=== PATIENT | male | born 1965 | race Caucasian/White ===

== ENCOUNTER 2019-01-17 17:47 | Inpatient (IN) | payer BC, OTHER ==
--- NOTE | 2019-01-17 19:06 | PDOC ---
History of Present Illness - General Chief Complaint: Pain, Acute Stated Complaint: BACK PAIN/NAUSEA History Source: Patient Exam Limitations: No Limitations Past History - Past Medical History Allergies/Adverse Reactions: Allergies Allergy/AdvReac Type Severity Reaction Status Date / Time No Known Allergies Allergy Verified 01/17/19 17:51 Home Medications: Ambulatory Orders Ibuprofen 800 mg PO TID #30 tablet 05/01/16 Oxycodone HCl/Acetaminophen [Percocet 5-325 mg Tablet] 1 - 2 tab PO Q6H #20 tablet MDD 4 05/01/16 COPD: No HTN: Yes Kidney Stones: Yes - Immunization History Immunization Up to Date: Yes - Suicide/Smoking/Psychosocial Hx Smoking History: Never smoked Have you smoked in the past 12 months: No Number of Cigarettes Smoked Daily: 0 Cigars Per Day: 0 Hx Alcohol Use: No Drug/Substance Use Hx: No *Physical Exam - Vital Signs Last Vital Signs Temp Pulse Resp BP Pulse Ox 98.8 F 86 18 157/99 98 01/17/19 17:49 01/17/19 17:49 01/17/19 17:49 01/17/19 17:49 01/17/19 17:49
[2019-01-17] MEDS ORDERED: KETOROLAC TROMETHAMINE 30 MG/1 ML VIAL IVPUSH ONE (20:04)
[2019-01-17] MEDS ORDERED: ONDANSETRON 4 MG/2 ML VIAL IVPUSH ONE (20:04)
[2019-01-17] MEDS ORDERED: SODIUM CHLORIDE 1,000 ML IV STA (20:04)
[2019-01-17] MEDS ORDERED: morphine CARPU-JECT 2 MG/1 ML DISP.SYRIN IVPUSH ONE (20:04)
--- NOTE | 2019-01-17 20:04 | PDOC ---
History of Present Illness - General History Source: Patient Exam Limitations: No Limitations - History of Present Illness Initial Comments: 01/17/19 19:52 Patient is a 53 year male with h/o HTN, kidney stones with lithotripsy 2 year ago, c/o of flank pain since this morning. States the pain is sharp, intermittent this morning but constant for the 2 hours now 9/10, associated with serial, no vomiting, no hematuria. Denies fever, chills. PMD: Elizabet PMHX: as above PSOCHX: neg etoh, drug, cig ALL: NKDA GENERAL/CONSTITUTIONAL: [No fever or chills. No weakness. No weight change.] HEAD, EYES, EARS, NOSE AND THROAT: [No change in vision. No ear pain or discharge. No sore throat.] CARDIOVASCULAR: [No chest pain or shortness of breath.] RESPIRATORY: [No cough, wheezing, or hemoptysis.] GASTROINTESTINAL: [No nausea, vomiting, diarrhea or constipation. No rectal bleeding.] GENITOURINARY: [No dysuria, frequency, or change in urination.] MUSCULOSKELETAL: [No joint or muscle swelling or pain. No neck or back pain.] SKIN AND BREASTS: [No rash or easy bruising.] NEUROLOGIC: [No headache, vertigo, loss of consciousness, or loss of sensation.] PSYCHIATRIC: [No depression or anxiety.] ENDOCRINE: [No increased thirst. No abnormal weight change.] HEMATOLOGIC/LYMPHATIC: [No anemia, easy bleeding, or history of blood clots.] ALLERGIC/IMMUNOLOGIC: [No hives or skin allergy. No latex allergy.] GENERAL: [The patient is awake, alert, and fully oriented, in no acute distress. ] HEAD: [Normal with no signs of trauma.] EYES: [Pupils equal, round and reactive to light, extraocular movements intact, sclera anicteric, conjunctiva clear.] ENT: [Ears normal, nares patent, oropharynx clear without exudates. Moist mucous membranes.] NECK: [Normal range of motion, supple without lymphadenopathy, JVD, or masses.] LUNGS: [Breath sounds equal, clear to auscultation bilaterally. No wheezes, and no crackles.] HEART: [Regular rate and rhythm, normal S1 and S2 without murmur, rub.] ABDOMEN: [Soft, nontender, normoactive bowel sounds. No guarding, no rebound. No masses.] EXTREMITIES: [Normal range of motion, no edema. No clubbing or cyanosis. No cords, erythema, or tenderness.] NEUROLOGICAL: [Cranial nerves II through XII grossly intact. Normal speech, normal gait.] PSYCH: [Normal mood, normal affect.] SKIN: [Warm, Dry, normal turgor, no rashes or lesions noted.] <Jose Haines - Last Filed: 01/17/19 20:07> <Nury Herrera - Last Filed: 01/17/19 23:35> - General Chief Complaint: Pain, Acute Stated Complaint: BACK PAIN/NAUSEA Past History - Past Medical History COPD: No HTN: Yes Kidney Stones: Yes - Immunization History Immunization Up to Date: Yes - Suicide/Smoking/Psychosocial Hx Smoking History: Never smoked Have you smoked in the past 12 months: No Number of Cigarettes Smoked Daily: 0 Cigars Per Day: 0 Hx Alcohol Use: No Drug/Substance Use Hx: No <Jose Haines - Last Filed: 01/17/19 20:07> <Nury Herrera - Last Filed: 01/17/19 23:35> - Past Medical History Allergies/Adverse Reactions: Allergies Allergy/AdvReac Type Severity Reaction Status Date / Time No Known Allergies Allergy Verified 01/17/19 17:51 Home Medications: Ambulatory Orders Ibuprofen 800 mg PO TID #30 tablet 05/01/16 Oxycodone HCl/Acetaminophen [Percocet 5-325 mg Tablet] 1 - 2 tab PO Q6H #20 tablet MDD 4 05/01/16 *Physical Exam - Vital Signs Last Vital Signs Temp Pulse Resp BP Pulse Ox 98.8 F 86 18 157/99 98 01/17/19 17:49 01/17/19 17:49 01/17/19 17:49 01/17/19 17:49 01/17/19 17:49 <Jose Haines - Last Filed: 01/17/19 20:07> - Vital Signs Last Vital Signs Temp Pulse Resp BP Pulse Ox 98.8 F 86 18 157/99 98 01/17/19 17:49 01/17/19 17:49 01/17/19 17:49 01/17/19 17:49 01/17/19 17:49 <Nury Herrera - Last Filed: 01/17/19 23:35> ED Treatment Course - LABORATORY CBC & Chemistry Diagram: 01/17/19 20:06 01/17/19 21:56 - ADDITIONAL ORDERS Additional order review: Laboratory Results 01/17/19 01/17/19 01/17/19 21:56 21:35 20:06 Sodium 136 Cancelled Potassium 4.1 Cancelled Chloride 104 Cancelled Carbon Dioxide 27 Cancelled Anion Gap 6 L Cancelled BUN 30 H Cancelled Creatinine 2.0 H Cancelled Creat Clearance w eGFR 35.13 Cancelled Random Glucose 106 Cancelled Calcium 9.2 Cancelled Total Bilirubin Cancelled AST Cancelled ALT Cancelled Alkaline Phosphatase Cancelled Total Protein Cancelled Albumin Cancelled Urine Color Yellow Urine Appearance Clear Urine pH 5.0 Ur Specific [place] 1.015 Urine Protein Negative Urine Glucose (UA) Negative Urine Ketones Negative Urine Blood 1+ H Urine Nitrite Negative Urine Bilirubin Negative Urine Urobilinogen 0.2 Ur Leukocyte Esterase 1+ H Urine WBC (Auto) 17 Urine RBC (Auto) 15 Urine Casts (Auto) 3 U Epithel Cells (Auto) 0.9 Urine Bacteria (Auto) 2.5 01/17/19 20:06 RBC 5.46 MCV 89.5 MCHC 33.9 RDW 15.0 D MPV 9.6 Neutrophils % 85.9 H Lymphocytes % 7.5 L D Monocytes % 5.8 Eosinophils % 0.5 Basophils % 0.3 - Medications Given in the ED: ED Medications Discontinued Medications Generic Name Dose Route Start Last Admin Trade Name Freq PRN Reason Stop Dose Admin Sodium Chloride 1,000 mls @ 1,000 mls/hr 01/17/19 20:04 01/17/19 22:41 Normal Saline - IV 01/17/19 21:03 1,000 mls/hr ASDIR STA Administration Ceftriaxone Sodium 1,000 mg/ 50 mls @ 100 mls/hr 01/17/19 22:15 01/17/19 22: 40 Dextrose IVPB 01/17/19 22:44 100 mls/hr ONCE ONE Administration Ketorolac Tromethamine 30 mg 01/17/19 20:04 01/17/19 21:50 Toradol Injection - IVPUSH 01/17/19 20:05 30 mg ONCE ONE Administration Morphine Sulfate 2 mg 01/17/19 20:04 01/17/19 21:50 Morphine Injection - IVPUSH 01/17/19 20:05 2 mg ONCE ONE Administration Ondansetron HCl 4 mg 01/17/19 20:04 01/17/19 21:50 Zofran Injection IVPUSH 01/17/19 20:05 4 mg ONCE ONE Administration <Nury Herrera - Last Filed: 01/17/19 23:35> Medical Decision Making - Medical Decision Making 01/17/19 23:33 Patient Name: GAYLA JUAREZ THIS IS A PRELIMINARY REPORT FROM [facility] DATE OF SERVICE: 2019-01-17 20:59:10 IMAGES: 465 EXAM: ABDOMEN \T\ PELVIS CT W/O CONTR HISTORY: Right flank pain COMPARISON: None provided FINDINGS: There is mild dependent atelectasis at the lung bases Noncalcified nodule in the left lower lobe measuring 4.5 mm, series 3 image 3 The liver, gallbladder, spleen, pancreas and adrenal glands are without gross abnormality allowing for lack of intravenous contrast There is a stone in the mid right ureter measuring 6 mm. Associated moderate to severe right hydronephrosis and perinephric stranding There is a stone in the proximal left ureter measuring 9 mm without hydronephrosis. Multiple bilateral nonobstructing renal stones A few cortical hypodensities in both kidneys are likely cysts There is no bowel distention The appendix is normal Multiple prostatic calcifications. The prostate is not enlarged Bilateral inguinal hernias containing fat No intra-abdominal free air or free fluid <Nury Herrera - Last Filed: 01/17/19 23:35> *DC/Admit/Observation/Transfer <Jose Haines - Last Filed: 01/17/19 20:07> - Discharge Dispostion Decision to Admit order: Yes <Nury Herrera - Last Filed: 01/17/19 23:35> Diagnosis at time of Disposition: Hydronephrosis, right, Kidney calculi, Ureteral calculus, right, Pyelonephritis - Discharge Dispostion Condition at time of disposition: Guarded
[2019-01-17 20:19] LABS: BASO % 0.3 % (0-2.0); EOS % 0.5 % (0-4.5); HEMATOCRIT 48.9 % (35.4-49); HEMOGLOBIN 16.6 GM/dL (11.7-16.9); LYMPH % 7.5 % (8-40); MCH 30.4 pg (25.7-33.7); MCHC 33.9 g/dl (32.0-35.9); MEAN CELL VOLUME 89.5 fl (80-96); MEAN PLT VOLUME 9.6 fl (7.5-11.1); MONO % 5.8 % (3.8-10.2); NEUT % 85.9 % (42.8-82.8); PLATELET COUNT 207 K/MM3 (134-434); RBC 5.46 M/mm3 (4.00-5.60); WHITE BLOOD COUNT 12.3 K/mm3 (4.0-10.0)
[2019-01-17] MEDS ORDERED: morphine SULFATE 4 MG/ML VIAL ONE (20:49)
[2019-01-17] MEDS ORDERED: ONDANSETRON 4 MG/2 ML VIAL ONE ×2 (20:50)
[2019-01-17] MEDS ORDERED: KETOROLAC TROMETHAMINE 30 MG/1 ML VIAL ONE (20:50)
[2019-01-17 21:53] LABS: EPI CELLS 0.9 /HPF (0-5/HPF); URINE APPEARANCE CLEAR; URINE BACTERIA 2.5 /hpf (NEGATIVE); URINE BILIRUBIN NEGATIVE (NEGATIVE); URINE CASTS 3 /lpf (0-8); URINE COLOR YELLOW; URINE GLUCOSE (UA) NEGATIVE (NEGATIVE); URINE KETONE NEGATIVE (NEGATIVE); URINE LEUK ESTERASE 1+ (NEGATIVE); URINE NITRITE NEGATIVE (NEGATIVE); URINE PROTEIN NEGATIVE (NEGATIVE); URINE RBC 15 /hpf (0-4); URINE UROBILINOGEN 0.2 mg/dL (0.2-1.0); URINE WBC 17 /hpf (0-5)
[2019-01-17] MEDS ORDERED: CEFTRIAXONE 1,000 MG in DEXTROSE 5%-WATER - 50 ML IVPB ONE (22:15)
[2019-01-17 22:26] LABS: ANION GAP 6 MMOL/L (8-16); BLOOD UREA NITROGEN 30 mg/dL (7-18); CALCIUM 9.2 mg/dL (8.5-10.1); CHLORIDE 104 mmol/L (98-107); CO2 27 mmol/L (21-32); GLUCOSE,RANDOM 106 mg/dL (74-106); POTASSIUM 4.1 mmol/L (3.5-5.1); SODIUM 136 mmol/L (136-145)
[2019-01-17] MEDS ORDERED: CEFTRIAXONE 1 GM/50 ML BAG ONE (22:35)
--- NOTE | 2019-01-18 00:24 | HP ---
CHIEF COMPLAINT: Right flank pain PCP: None HISTORY OF PRESENT ILLNESS: Pt is a 53 y/o M with a significant past medical history of nephrolithiasis, HTN , and Depression who presented to [facility] [place] 2[place] due to right flank pain. Pain commenced yesterday morning (01/18/19) suddenly. Pain is sharp, constant and nonradiating. Pt endorses an episode of vomiting in addition to nausea and decreased appetite. Pt denies any blood in his urine or painful urination. Also denies fever, chills, or rigors. Endorses he has had these symptoms in the past which were attributed to kidney stones. PMH as above Social Hx- Denies Tobacco/Alcohol/Illicit drug use SurgHx- R ESWL FH- Father HTN, Mother HLF NKDA ER course was notable for: (1) CTAP--> R ureteral stone 6 mm (2) WBC 12.3 (3) Ceftriaxone 1 gm given in ED HOME MEDICATIONS: Home Medications Medication Instructions Recorded Ibuprofen 800 mg PO TID #30 tablet 05/01/16 Oxycodone HCl/Acetaminophen 1 - 2 tab PO Q6H #20 tablet MDD 4 05/01/16 [Percocet 5-325 mg Tablet] REVIEW OF SYSTEMS CONSTITUTIONAL: Absent: fever, chills, diaphoresis, generalized weakness, malaise, loss of appetite, weight change HEENT: Absent: rhinorrhea, nasal congestion, throat pain, throat swelling, difficulty swallowing, mouth swelling, ear pain, eye pain, visual changes CARDIOVASCULAR: Absent: chest pain, syncope, palpitations, irregular heart rate, lightheadedness , peripheral edema RESPIRATORY: Absent: cough, shortness of breath, dyspnea with exertion, orthopnea, wheezing, stridor, hemoptysis GASTROINTESTINAL: Absent: abdominal pain, abdominal distension, nausea, vomiting, diarrhea, constipation, melena, hematochezia GENITOURINARY: present: flank pain MUSCULOSKELETAL: Absent: myalgia, arthralgia, joint swelling, back pain, neck pain SKIN: Absent: rash, itching, pallor HEMATOLOGIC/IMMUNOLOGIC: Absent: easy bleeding, easy bruising, lymphadenopathy, frequent infections ENDOCRINE: Absent: unexplained weight gain, unexplained weight loss, heat intolerance, cold intolerance NEUROLOGIC: Absent: headache, focal weakness or paresthesias, dizziness, unsteady gait, seizure, mental status changes, bladder or bowel incontinence PSYCHIATRIC: Absent: anxiety, depression, suicidal or homicidal ideation, hallucinations. PHYSICAL EXAMINATION Vital Signs - 24 hr 01/17/19 17:49 Temperature 98.8 F Pulse Rate 86 Respiratory 18 Rate Blood Pressure 157/99 O2 Sat by Pulse 98 Oximetry (%) GENERAL: NAD HEAD: Normal with no signs of trauma. EYES: eomi sclera clear. EARS, NOSE, THROAT: mmm NECK: supple LUNGS: ctab HEART: RRR nl S1S2 ABDOMEN: Soft, nontender, not distended, RIGHT CVA tenderness ma. LOWER EXTREMITIES: no cce NEUROLOGICAL: Cranial nerves II-XII intact. Normal speech. Normal gait. PSYCHIATRIC: Cooperative. Good eye contact. Appropriate mood and affect. SKIN: Warm, dry, normal turgor, no rashes or lesions noted, normal capillary refill. Laboratory Results - last 24 hr 01/17/19 01/17/19 01/17/19 20:06 20:06 21:35 WBC 12.3 H RBC 5.46 Hgb 16.6 Hct 48.9 MCV 89.5 MCH 30.4 MCHC 33.9 RDW 15.0 D Plt Count 207 MPV 9.6 Absolute Neuts (auto) 10.6 H Neutrophils % 85.9 H Lymphocytes % 7.5 L D Monocytes % 5.8 Eosinophils % 0.5 Basophils % 0.3 Nucleated RBC % 0 Sodium Cancelled Potassium Cancelled Chloride Cancelled Carbon Dioxide Cancelled Anion Gap Cancelled BUN Cancelled Creatinine Cancelled Creat Clearance w eGFR Cancelled Random Glucose Cancelled Calcium Cancelled Total Bilirubin Cancelled AST Cancelled ALT Cancelled Alkaline Phosphatase Cancelled Total Protein Cancelled Albumin Cancelled Urine Color Yellow Urine Appearance Clear Urine pH 5.0 Ur Specific [place] 1.015 Urine Protein Negative Urine Glucose (UA) Negative Urine Ketones Negative Urine Blood 1+ H Urine Nitrite Negative Urine Bilirubin Negative Urine Urobilinogen 0.2 Ur Leukocyte Esterase 1+ H Urine WBC (Auto) 17 Urine RBC (Auto) 15 Urine Casts (Auto) 3 U Epithel Cells (Auto) 0.9 Urine Bacteria (Auto) 2.5 01/17/19 21:56 WBC RBC Hgb Hct MCV MCH MCHC RDW Plt Count MPV Absolute Neuts (auto) Neutrophils % Lymphocytes % Monocytes % Eosinophils % Basophils % Nucleated RBC % Sodium 136 Potassium 4.1 Chloride 104 Carbon Dioxide 27 Anion Gap 6 L BUN 30 H Creatinine 2.0 H Creat Clearance w eGFR 35.13 Random Glucose 106 Calcium 9.2 Total Bilirubin AST ALT Alkaline Phosphatase Total Protein Albumin Urine Color Urine Appearance Urine pH Ur Specific [place] Urine Protein Urine Glucose (UA) Urine Ketones Urine Blood Urine Nitrite Urine Bilirubin Urine Urobilinogen Ur Leukocyte Esterase Urine WBC (Auto) Urine RBC (Auto) Urine Casts (Auto) U Epithel Cells (Auto) Urine Bacteria (Auto) ASSESSMENT/PLAN: Pt is a 53 y/o gentleman with a significant past medical history of nephrolithiasis, HTN, and Depression who presented to [facility] [place] 2[place] due to right flank pain. # Right Hydronephrosis 2/2 R ureteral calculus -CTAP---> 6 mm mid R ureteral stone w/ associated R Hydronephrosis and perinephric stranding -Urology Consult -continue with Ceftriaxone 1 g daily. -Strain Urine -Morphine 2 mg Q6H PRN - NPO in light of possible ureteroscopy laser Lithotripsy in am or ESWL. Usually ESWl for stones less than 10 cm. -Flomax 0.4 daily to aid in stone passage # BHARGAVI vs CKD -Last admission 2015, pt also had Cr of 2.0. Will hydrate and repeat BMP in am. -Day team to consider Urine Studies and Renal Consult. Will hold Losartan 50 Daily # HTN Hold Losartan in light of elevated Cr. Day team to reconcile medication dosages in am. Pharmacy closed #Depression Resume Tofranil. Day team to reconcile medication dosages in am. Pharmacy closed. Pt states he is on 50 BID. #FEN LR@75 Monitor Electrolytes NPO #DVT ppx: SCDs #Dispo: Med-Surg Visit type - Emergency Visit Emergency Visit: Yes ED Registration Date: 01/17/19 Care time: The patient presented to the Emergency Department on the above date and was hospitalized for further evaluation of their emergent condition. - New Patient This patient is new to me today: Yes Date on this admission: 01/18/19 - Critical Care Critical Care patient: No
[2019-01-18] MEDS ORDERED: morphine SULFATE 4 MG/ML VIAL IVPUSH PRN (00:58)
[2019-01-18] MEDS ORDERED: LACTATED RINGERS SOLUTION 1,000 ML/1,000 ML INFUS.BAG IV SCH (01:00)
[2019-01-18] MEDS: TAMSULOSIN HCL 0.4 MG CAP PO SCH ×2 (02:29→08:33)
[2019-01-18] MEDS ORDERED: HEPARIN NA (PORCINE) 5,000 UNITS/ML 1ML VIAL SQ SCH (06:00)
--- NOTE | 2019-01-18 06:14 | PN ---
Teaching Attending Note Name of Resident: Serge Almonte ATTENDING PHYSICIAN STATEMENT I saw and evaluated the patient. I reviewed the resident's note and discussed the case with the resident. I agree with the resident's findings and plan as documented. SUBJECTIVE: OBJECTIVE: s1 and s2 rrr lungs cta CVA tenderness PERRLA good mood ASSESSMENT AND PLAN: Pt is a 53 y/o male with a hx of nephrolithiasis, HTN, and MDD presented to the hospital for right flank pain. Right Hydronephrosis 2/2 R ureteral calculus -CTAP---> 6 mm mid R ureteral stone w/ associated R Hydronephrosis and perinephric stranding -Urology Consult -continue with Ceftriaxone 1 g daily. pain management with Morphine 2 mg Q6H PRN - NPO in light of possible ureteroscopy laser Lithotripsy in am or ESWL. Usually ESWl for stones less than 10 cm. -tamsulosin 0.4 daily to aid in stone passage - analysis of the stone to prevent recoccrence is warrented # BHARGAVI vs CKD - IVVF hydration - renal evaluation - HTN: - c/w medication #Depression c/w home medication patient is not homicidal or suicidal Problem List - Problems (1) Acute kidney injury superimposed on CKD Code(s): N17.9 - ACUTE KIDNEY FAILURE, UNSPECIFIED; N18.9 - CHRONIC KIDNEY DISEASE, UNSPECIFIED (2) HTN (hypertension), benign Code(s): I10 - ESSENTIAL (PRIMARY) HYPERTENSION (3) MDD (major depressive disorder), recurrent episode, mild Code(s): F33.0 - MAJOR DEPRESSIVE DISORDER, RECURRENT, MILD (4) Hydronephrosis, right Code(s): N13.30 - UNSPECIFIED HYDRONEPHROSIS
[2019-01-18] MEDS: IMIPRAMINE HCL 25 MG TABLET (NON FORMULARY) PO SCH ×2 (07:14→22:14)
[2019-01-18 07:56] LABS: BASO % 0.4 % (0-2.0); EOS % 1.7 % (0-4.5); HEMATOCRIT 46.2 % (35.4-49); LYMPH % 17.1 % (8-40); MCH 31.5 pg (25.7-33.7); MCHC 34.6 g/dl (32.0-35.9); MEAN CELL VOLUME 90.9 fl (80-96); MEAN PLT VOLUME 9.2 fl (7.5-11.1); MONO % 7.3 % (3.8-10.2); NEUT % 73.5 % (42.8-82.8); PLATELET COUNT 174 K/MM3 (134-434); RBC 5.09 M/mm3 (4.00-5.60); RDW 13.1 % (11.9-15.9)
[2019-01-18 08:35] LABS: ALBUMIN 3.3 g/dl (3.4-5.0); ALK PHOS 65 U/L (45-117); ANION GAP 6 MMOL/L (8-16); BILIRUBIN,TOTAL 0.6 mg/dL (0.2-1); BLOOD UREA NITROGEN 23 mg/dL (7-18); CALCIUM 8.3 mg/dL (8.5-10.1); CHLORIDE 108 mmol/L (98-107); CO2 27 mmol/L (21-32); CREATININE 1.7 mg/dL (0.55-1.3); GLUCOSE,RANDOM 96 mg/dL (74-106); MAGNESIUM 2.2 mg/dL (1.8-2.4); PHOSPHOROUS 2.6 mg/dL (2.5-4.9); POTASSIUM 4.3 mmol/L (3.5-5.1); SGOT/AST 19 U/L (15-37); SGPT/ALT 30 U/L (13-61); SODIUM 141 mmol/L (136-145); TOT PROT 6.1 g/dl (6.4-8.2)
[2019-01-18 08:45] LABS: INR 1.02 (0.83-1.09)
--- NOTE | 2019-01-18 13:07 | PN ---
Physical Exam: SUBJECTIVE: Patient seen and examined at bedside. PAIN is better controlled with IV morphine so far. OBJECTIVE: Vital Signs Period Temp Pulse Resp BP Sys/Culver Pulse Ox Last 24 Hr 98.2 F-98.8 F 84-86 18-18 123-157/66-99 97-98 GENERAL: The patient is awake, alert, and fully oriented, in no acute distress. HEAD: Normal with no signs of trauma. EYES: PERRL, extraocular movements intact, sclera anicteric, conjunctiva clear. No ptosis. ENT: Ears normal, nares patent, oropharynx clear without exudates, moist mucous membranes. NECK: Trachea midline, full range of motion, supple. LUNGS: Breath sounds equal, clear to auscultation bilaterally, no wheezes, no crackles, no accessory muscle use. HEART: Regular rate and rhythm, S1, S2 without murmur, rub or gallop. ABDOMEN: Soft, decreased right flank tenderness.. EXTREMITIES: 2+ pulses, warm, well-perfused, no edema. NEUROLOGICAL: Cranial nerves II through XII grossly intact. Normal speech, gait not observed. PSYCH: Normal mood, normal affect. SKIN: Warm, dry, normal turgor, no rashes or lesions noted Laboratory Results - last 24 hr 01/17/19 01/17/19 01/17/19 20:06 20:06 21:35 WBC 12.3 H RBC 5.46 Hgb 16.6 Hct 48.9 MCV 89.5 MCH 30.4 MCHC 33.9 RDW 15.0 D Plt Count 207 MPV 9.6 Absolute Neuts (auto) 10.6 H Neutrophils % 85.9 H Lymphocytes % 7.5 L D Monocytes % 5.8 Eosinophils % 0.5 Basophils % 0.3 Nucleated RBC % 0 PT with INR INR PTT (Actin FS) Sodium Cancelled Potassium Cancelled Chloride Cancelled Carbon Dioxide Cancelled Anion Gap Cancelled BUN Cancelled Creatinine Cancelled Creat Clearance w eGFR Cancelled Random Glucose Cancelled Calcium Cancelled Phosphorus Magnesium Total Bilirubin Cancelled AST Cancelled ALT Cancelled Alkaline Phosphatase Cancelled Total Protein Cancelled Albumin Cancelled Urine Color Yellow Urine Appearance Clear Urine pH 5.0 Ur Specific [place] 1.015 Urine Protein Negative Urine Glucose (UA) Negative Urine Ketones Negative Urine Blood 1+ H Urine Nitrite Negative Urine Bilirubin Negative Urine Urobilinogen 0.2 Ur Leukocyte Esterase 1+ H Urine WBC (Auto) 17 Urine RBC (Auto) 15 Urine Casts (Auto) 3 U Epithel Cells (Auto) 0.9 Urine Bacteria (Auto) 2.5 Blood Type Antibody Screen 01/17/19 01/18/19 01/18/19 21:56 05:20 07:40 WBC 9.0 RBC 5.09 Hgb 16.0 Hct 46.2 MCV 90.9 MCH 31.5 MCHC 34.6 RDW 13.1 D Plt Count 174 MPV 9.2 Absolute Neuts (auto) 6.6 Neutrophils % 73.5 Lymphocytes % 17.1 D Monocytes % 7.3 Eosinophils % 1.7 D Basophils % 0.4 Nucleated RBC % 0 PT with INR INR PTT (Actin FS) Sodium 136 Potassium 4.1 Chloride 104 Carbon Dioxide 27 Anion Gap 6 L BUN 30 H Creatinine 2.0 H Creat Clearance w eGFR 35.13 Random Glucose 106 Calcium 9.2 Phosphorus Magnesium Total Bilirubin AST ALT Alkaline Phosphatase Total Protein Albumin Urine Color Urine Appearance Urine pH Ur Specific [place] Urine Protein Urine Glucose (UA) Urine Ketones Urine Blood Urine Nitrite Urine Bilirubin Urine Urobilinogen Ur Leukocyte Esterase Urine WBC (Auto) Urine RBC (Auto) Urine Casts (Auto) U Epithel Cells (Auto) Urine Bacteria (Auto) Blood Type AB POSITIVE Antibody Screen Negative 01/18/19 01/18/19 01/18/19 07:40 07:40 09:00 WBC RBC Hgb Hct MCV MCH MCHC RDW Plt Count MPV Absolute Neuts (auto) Neutrophils % Lymphocytes % Monocytes % Eosinophils % Basophils % Nucleated RBC % PT with INR 12.00 INR 1.02 PTT (Actin FS) 31.0 Sodium 141 Potassium 4.3 Chloride 108 H Carbon Dioxide 27 Anion Gap 6 L BUN 23 H Creatinine 1.7 H Creat Clearance w eGFR 42.37 Random Glucose 96 Calcium 8.3 L Phosphorus 2.6 Magnesium 2.2 Total Bilirubin 0.6 AST 19 ALT 30 Alkaline Phosphatase 65 Total Protein 6.1 L Albumin 3.3 L Urine Color Urine Appearance Urine pH Ur Specific [place] Urine Protein Urine Glucose (UA) Urine Ketones Urine Blood Urine Nitrite Urine Bilirubin Urine Urobilinogen Ur Leukocyte Esterase Urine WBC (Auto) Urine RBC (Auto) Urine Casts (Auto) U Epithel Cells (Auto) Urine Bacteria (Auto) Blood Type AB POSITIVE Antibody Screen Active Medications Generic Name Dose Route Start Last Admin Trade Name Bre PRN Reason Stop Dose Admin Lactated Ringer's 1,000 ml in 1,000 mls @ 75 mls/hr 01/18/19 01:00 01/18/19 02:27 Lactated Ringers Solution IV 75 mls/hr ASDIR BHARAT Administration Ceftriaxone Sodium 1 gm/ 50 mls @ 100 mls/hr 01/18/19 22:00 Dextrose IVPB 01/18/19 22:29 ONCE ONE Imipramine HCl 50 mg 01/18/19 06:00 01/18/19 07:14 Tofranil - PO 50 mg BID BHARAT Administration Morphine Sulfate 2 mg 01/18/19 00:58 Morphine Sulfate IVPUSH Q6H PRN PAIN LEVEL 6-10 Tamsulosin HCl 0.4 mg 01/18/19 01:51 01/18/19 08:33 Flomax - PO Not Given DAILY@0830 [facility]ESS [facility] ASSESSMENT/PLAN: Pt is a 53 y/o gentleman with a significant past medical history of nephrolithiasis, HTN, and Depression who presented to [facility] due to right flank pain. # Right Hydronephrosis 2/2 R ureteral calculus possibly complicated by UTI -CTAP---> 6 mm mid R ureteral stone w/ associated R Hydronephrosis and perinephric stranding - Pending Urology eval. -continue with Ceftriaxone 1 g daily for now.>>F/U with urine cx -Strain Urine - control pain, can switch IV morphine to percocet. -Flomax 0.4 daily to aid in stone passage # BHARGAVI ON ?? CKD -Last admission 2015, pt also had Cr of 2.0 >>>1.7 today. -Will hold Losartan for now. # HTN Hold Losartan in light of elevated Cr. #Depression Resume Tofranil. Need to reconcile medication dosages . Pt states he is on 50 BID. #FEN LR@75 Monitor Electrolytes #DVT ppx: SCDs #Dispo: Med-Surg Plan d/w the patient at bedside. Visit type - Emergency Visit Emergency Visit: Yes ED Registration Date: 01/17/19 Care time: The patient presented to the Emergency Department on the above date and was hospitalized for further evaluation of their emergent condition. - New Patient This patient is new to me today: Yes Date on this admission: 01/18/19 - Critical Care Critical Care patient: No - Discharge Referral Referred to [facility] No
[2019-01-18] MEDS ORDERED: morphine SULFATE 4 MG/ML VIAL ONE (15:09)
[2019-01-18] MEDS ORDERED: ACETAMINOPHEN 325 MG TABLET (FP) PO PRN (15:27)
[2019-01-18] MEDS ORDERED: oxyCODONE HCL 5 MG TABLET PO PRN (15:27)
[2019-01-18 16:55] VITALS: BMI 26.5
[2019-01-18] MEDS ORDERED: PT OWN MED DRAWER 7, Y5N ONE ×2 (16:59→20:04)
--- NOTE | 2019-01-18 17:20 | PN ---
Physical Exam: SUBJECTIVE: Patient seen and examined at bedside this morning. Patient admitted last night due to right flank pain for 1 day. Patient reported improvement of pain this morning with morphine. He denies fever, chills, headache, dizziness, chest pain, SOB, abdominal pain, diarrhea. He denies dysuria, hematuria. OBJECTIVE: Vital Signs Temperature 97.9 F 01/18/19 16:45 Pulse Rate 80 01/18/19 16:45 Respiratory Rate 20 01/18/19 16:45 Blood Pressure 149/90 01/18/19 16:45 O2 Sat by Pulse Oximetry (%) 100 01/18/19 16:45 GENERAL: The patient is awake, alert, and fully oriented, in no acute distress. HEAD: Normal with no signs of trauma. EYES:PERRLA, EOMI, sclera anicteric, conjunctiva clear. ENT:oropharynx clear without exudates, moist mucous membranes. NECK: Trachea midline, full range of motion, supple. LUNGS: Breath sounds equal, clear to auscultation bilaterally HEART: Regular rate and rhythm, S1, S2 without murmur, rub or gallop. ABDOMEN: Soft, nontender, nondistended, normoactive bowel sounds. +R flank tenderness EXTREMITIES: 2+ pulses, warm, well-perfused, no edema. NEUROLOGICAL: Cranial nerves II through XII grossly intact. Normal speech, normal gait. PSYCH: Normal mood, normal affect. SKIN: Warm, dry, normal turgor, no rashes or lesions noted Laboratory Results - last 24 hr 01/17/19 01/17/19 01/17/19 20:06 20:06 21:35 WBC 12.3 H RBC 5.46 Hgb 16.6 Hct 48.9 MCV 89.5 MCH 30.4 MCHC 33.9 RDW 15.0 D Plt Count 207 MPV 9.6 Absolute Neuts (auto) 10.6 H Neutrophils % 85.9 H Lymphocytes % 7.5 L D Monocytes % 5.8 Eosinophils % 0.5 Basophils % 0.3 Nucleated RBC % 0 PT with INR INR PTT (Actin FS) Sodium Cancelled Potassium Cancelled Chloride Cancelled Carbon Dioxide Cancelled Anion Gap Cancelled BUN Cancelled Creatinine Cancelled Creat Clearance w eGFR Cancelled Random Glucose Cancelled Calcium Cancelled Phosphorus Magnesium Total Bilirubin Cancelled AST Cancelled ALT Cancelled Alkaline Phosphatase Cancelled Total Protein Cancelled Albumin Cancelled Urine Color Yellow Urine Appearance Clear Urine pH 5.0 Ur Specific [place] 1.015 Urine Protein Negative Urine Glucose (UA) Negative Urine Ketones Negative Urine Blood 1+ H Urine Nitrite Negative Urine Bilirubin Negative Urine Urobilinogen 0.2 Ur Leukocyte Esterase 1+ H Urine WBC (Auto) 17 Urine RBC (Auto) 15 Urine Casts (Auto) 3 U Epithel Cells (Auto) 0.9 Urine Bacteria (Auto) 2.5 Blood Type Antibody Screen 01/17/19 01/18/19 01/18/19 21:56 05:20 07:40 WBC 9.0 RBC 5.09 Hgb 16.0 Hct 46.2 MCV 90.9 MCH 31.5 MCHC 34.6 RDW 13.1 D Plt Count 174 MPV 9.2 Absolute Neuts (auto) 6.6 Neutrophils % 73.5 Lymphocytes % 17.1 D Monocytes % 7.3 Eosinophils % 1.7 D Basophils % 0.4 Nucleated RBC % 0 PT with INR INR PTT (Actin FS) Sodium 136 Potassium 4.1 Chloride 104 Carbon Dioxide 27 Anion Gap 6 L BUN 30 H Creatinine 2.0 H Creat Clearance w eGFR 35.13 Random Glucose 106 Calcium 9.2 Phosphorus Magnesium Total Bilirubin AST ALT Alkaline Phosphatase Total Protein Albumin Urine Color Urine Appearance Urine pH Ur Specific [place] Urine Protein Urine Glucose (UA) Urine Ketones Urine Blood Urine Nitrite Urine Bilirubin Urine Urobilinogen Ur Leukocyte Esterase Urine WBC (Auto) Urine RBC (Auto) Urine Casts (Auto) U Epithel Cells (Auto) Urine Bacteria (Auto) Blood Type AB POSITIVE Antibody Screen Negative 01/18/19 01/18/19 01/18/19 07:40 07:40 09:00 WBC RBC Hgb Hct MCV MCH MCHC RDW Plt Count MPV Absolute Neuts (auto) Neutrophils % Lymphocytes % Monocytes % Eosinophils % Basophils % Nucleated RBC % PT with INR 12.00 INR 1.02 PTT (Actin FS) 31.0 Sodium 141 Potassium 4.3 Chloride 108 H Carbon Dioxide 27 Anion Gap 6 L BUN 23 H Creatinine 1.7 H Creat Clearance w eGFR 42.37 Random Glucose 96 Calcium 8.3 L Phosphorus 2.6 Magnesium 2.2 Total Bilirubin 0.6 AST 19 ALT 30 Alkaline Phosphatase 65 Total Protein 6.1 L Albumin 3.3 L Urine Color Urine Appearance Urine pH Ur Specific [place] Urine Protein Urine Glucose (UA) Urine Ketones Urine Blood Urine Nitrite Urine Bilirubin Urine Urobilinogen Ur Leukocyte Esterase Urine WBC (Auto) Urine RBC (Auto) Urine Casts (Auto) U Epithel Cells (Auto) Urine Bacteria (Auto) Blood Type AB POSITIVE Antibody Screen Active Medications Generic Name Dose Route Start Last Admin Trade Name Freq PRN Reason Stop Dose Admin Acetaminophen 325 mg 01/18/19 15:27 Tylenol - PO Q6H PRN PAIN SCALE 4-6 Lactated Ringer's 1,000 ml in 1,000 mls @ 75 mls/hr 01/18/19 01:00 01/18/19 02:27 Lactated Ringers Solution IV 75 mls/hr ASDIR BHARAT Administration Ceftriaxone Sodium 1 gm/ 50 mls @ 100 mls/hr 01/18/19 22:00 Dextrose IVPB 01/18/19 22:29 ONCE ONE Imipramine HCl 50 mg 01/18/19 06:00 01/18/19 07:14 Tofranil - PO 50 mg BID BHARAT Administration Morphine Sulfate 2 mg 01/18/19 00:58 01/18/19 15:17 Morphine Sulfate IVPUSH 2 mg Q6H PRN Administration PAIN LEVEL 6-10 Oxycodone HCl 5 mg 01/18/19 15:27 Roxicodone - PO Q6H PRN PAIN SCALE 4-6 Tamsulosin HCl 0.4 mg 01/18/19 01:51 01/18/19 08:33 Flomax - PO Not Given DAILY@0830 [facility] ASSESSMENT/PLAN: Patient is a 53 year old male with past medical history of nephrolithiasis (s/p R and L lithotripsy), HTN and depression, presented to the ED due to right flank pain for 1 day. #Bilateral hydronephrosis 2/2 bilateral ureteral calculus -CTAP: 6mm distal right ureteral calculus with moderate hydronephrosis. 10mm proximal left ureteral calculus with mild hydronephrosis. Bilateral nephrolithiasis. No additional evidence of acute pathology within the abdomen or pelvis. -Urology (Dr. Parikh) consulted. -Percocet PRN for pain -Will resume diet for now, awaiting urology recs -Flomax 0.4mg daily -IV LR @75cc/hr #Complicated UTI -patient presented with leukocytosis, UA +LE WBC 17 -will continue Ceftriaxone 1gm daily for now -awaiting urine cultures #BHARGAVI on CKD -Cr improving 2 --> 1.7 (2 in 2017) -will continue IV hydration -monitor BMP #HTN -Losartan on hold in light of renal function. #Depression -Will continue Tofranil 50mg BID #FEN -IV LR @75cc.hr -Electrolytes wnl routine bmp monitoring -sodium controlled diet #Prophylaxis -SCDs, early ambulation #Disposition -full code -med surg Visit type - Emergency Visit Emergency Visit: Yes ED Registration Date: 01/17/19 Care time: The patient presented to the Emergency Department on the above date and was hospitalized for further evaluation of their emergent condition. - New Patient This patient is new to me today: Yes Date on this admission: 01/18/19 - Critical Care Critical Care patient: No
[2019-01-18] MEDS ORDERED: DEXTROSE 5%-WATER - 50 ML IVPB ONE (20:04)
[2019-01-18] MEDS ORDERED: cefTRIAXone SODIUM 1 GM VIAL ONE (20:04)
[2019-01-18] MEDS ORDERED: CEFTRIAXONE 1 GM in DEXTROSE 5%-WATER - 50 ML IVPB ONE (22:00)
[2019-01-19] MEDS ORDERED: ACETAMINOPHEN 325 MG TABLET (FP) PO PRN (07:12)
[2019-01-19] MEDS ORDERED: oxyCODONE HCL 5 MG TABLET PO PRN (07:12)
[2019-01-19 07:22] LABS: INR 1.02 (0.83-1.09)
[2019-01-19 07:25] LABS: ACTIVATED PTT 29.5 SECONDS (25.2-36.5)
[2019-01-19 07:29] LABS: ALBUMIN 3.2 g/dl (3.4-5.0); ALK PHOS 60 U/L (45-117); ANION GAP 5 MMOL/L (8-16); BILIRUBIN,TOTAL 0.3 mg/dL (0.2-1); BLOOD UREA NITROGEN 22 mg/dL (7-18); CALCIUM 8.4 mg/dL (8.5-10.1); CHLORIDE 106 mmol/L (98-107); CO2 28 mmol/L (21-32); CREATININE 1.4 mg/dL (0.55-1.3); GLUCOSE,RANDOM 91 mg/dL (74-106); PHOSPHOROUS 3.3 mg/dL (2.5-4.9); POTASSIUM 4.3 mmol/L (3.5-5.1); SGOT/AST 15 U/L (15-37); SGPT/ALT 28 U/L (13-61); SODIUM 140 mmol/L (136-145); TOT PROT 6.1 g/dl (6.4-8.2)
[2019-01-19 07:36] LABS: BASO % 0.7 % (0-2.0); EOS % 2.4 % (0-4.5); HEMOGLOBIN 15.4 GM/dL (11.7-16.9); LYMPH % 21.8 % (8-40); MCH 30.7 pg (25.7-33.7); MCHC 34.2 g/dl (32.0-35.9); MEAN CELL VOLUME 89.7 fl (80-96); MEAN PLT VOLUME 9.5 fl (7.5-11.1); NEUT % 67.1 % (42.8-82.8); PLATELET COUNT 200 K/MM3 (134-434); RBC 5.01 M/mm3 (4.00-5.60); RDW 12.8 % (11.9-15.9); WHITE BLOOD COUNT 5.9 K/mm3 (4.0-10.0)
--- NOTE | 2019-01-19 09:05 | CONS ---
DATE OF CONSULTATION: 01/19/2019 DIAGNOSIS: Nephrolithiasis with acute renal colic. HISTORY OF PRESENT ILLNESS: The patient is a 53-year-old with a history of nephrolithiasis, who I previously took care of in 2016. He presented to the emergency room on January 18 after 24 hours of right-sided flank pain and an episode of vomiting on January 17. In the emergency room, the patient was afebrile, but did have an elevated white count and a moderate amount of right-sided flank pain. A CT scan was performed, multiple renal calculi were noted bilaterally. In addition, an obstructing calculus was noted in the mid right ureter approximately 7 mm in size. An additional calculus was also noted in the ureter on the left side, although the report has a typographical error indicating that that was the right side, but the stone on the left side did not appear to be causing any significant obstruction or pain. On admission, however, the patients creatinine was elevated to 2. Over the ensuring 24 hours, the pain responded to analgesics. PLAN: In light of the bilateral nature of the patients stone burden, I am planning to bring him to the OR to put up a stent at least on the right and possibly on the left, as well. Patient will be kept n.p.o. after midnight tonight. With the stents placed and once the obstruction is relieved, a definitive plan for treatment will be undertaken or reviewed. MD MARCO GROVER/[id number]
[2019-01-19] MEDS: TAMSULOSIN HCL 0.4 MG CAP PO SCH (09:32)
[2019-01-19] MEDS ORDERED: cefTRIAXone SODIUM 1 GM VIAL ONE (09:42)
[2019-01-19] MEDS ORDERED: DEXTROSE 5%-WATER - 50 ML IVPB ONE (09:42)
[2019-01-19] MEDS: SODIUM CHLORIDE 1,000 ML IV SCH ×2 (09:48→21:17)
[2019-01-19] MEDS: CEFTRIAXONE 1 GM in DEXTROSE 5%-WATER - 50 ML IVPB SCH (09:50)
[2019-01-19] MEDS ORDERED: CEFTRIAXONE 1 GM in DEXTROSE 5%-WATER - 50 ML IVPB SCH (10:00)
--- NOTE | 2019-01-19 10:45 | PN ---
Physical Exam: SUBJECTIVE: Patient seen and examined at bedside this morning. No acute events overnight. Patient reported he is still having right flank pain that was relieved by medication. Seen with Dr. Angel this morning, plan for ureteral stent placement tomorrow. OBJECTIVE: Vital Signs Temperature 97.9 F 01/19/19 06:00 Pulse Rate 72 01/19/19 06:00 Respiratory Rate 18 01/19/19 06:00 Blood Pressure 122/68 01/19/19 06:00 O2 Sat by Pulse Oximetry (%) 97 01/18/19 21:00 GENERAL: The patient is awake, alert, and fully oriented, in no acute distress. HEAD: Normal with no signs of trauma. EYES:PERRLA, EOMI, sclera anicteric, conjunctiva clear. ENT:oropharynx clear without exudates, moist mucous membranes. NECK: Trachea midline, full range of motion, supple. LUNGS: Breath sounds equal, clear to auscultation bilaterally HEART: Regular rate and rhythm, S1, S2 without murmur, rub or gallop. ABDOMEN: Soft, nontender, nondistended, normoactive bowel sounds. +R flank tenderness EXTREMITIES: 2+ pulses, warm, well-perfused, no edema. NEUROLOGICAL: Cranial nerves II through XII grossly intact. Normal speech, normal gait. PSYCH: Normal mood, normal affect. SKIN: Warm, dry, normal turgor, no rashes or lesions noted Laboratory Results - last 24 hr 01/18/19 01/19/19 01/19/19 09:00 06:00 06:00 WBC 5.9 RBC 5.01 Hgb 15.4 Hct 45.0 MCV 89.7 MCH 30.7 MCHC 34.2 RDW 12.8 Plt Count 200 MPV 9.5 Absolute Neuts (auto) 4.0 Neutrophils % 67.1 Lymphocytes % 21.8 D Monocytes % 8.0 Eosinophils % 2.4 Basophils % 0.7 Nucleated RBC % 0 PT with INR 12.00 INR 1.02 PTT (Actin FS) 29.5 Sodium Potassium Chloride Carbon Dioxide Anion Gap BUN Creatinine Creat Clearance w eGFR Random Glucose Calcium Phosphorus Magnesium Total Bilirubin AST ALT Alkaline Phosphatase Total Protein Albumin Blood Type AB POSITIVE 01/19/19 06:00 WBC RBC Hgb Hct MCV MCH MCHC RDW Plt Count MPV Absolute Neuts (auto) Neutrophils % Lymphocytes % Monocytes % Eosinophils % Basophils % Nucleated RBC % PT with INR INR PTT (Actin FS) Sodium 140 Potassium 4.3 Chloride 106 Carbon Dioxide 28 Anion Gap 5 L BUN 22 H Creatinine 1.4 H Creat Clearance w eGFR 53.01 Random Glucose 91 Calcium 8.4 L Phosphorus 3.3 Magnesium 2.0 Total Bilirubin 0.3 AST 15 ALT 28 Alkaline Phosphatase 60 Total Protein 6.1 L Albumin 3.2 L Blood Type Active Medications Generic Name Dose Route Start Last Admin Trade Name Freq PRN Reason Stop Dose Admin Acetaminophen 650 mg 01/19/19 07:12 Tylenol - PO Q6H PRN PAIN OR FEVER Sodium Chloride 1,000 mls @ 75 mls/hr 01/19/19 07:15 01/19/19 09:48 Normal Saline - IV 75 mls/hr ASDIR BHARAT Administration Ceftriaxone Sodium 1 gm/ 50 mls @ 100 mls/hr 01/19/19 10:00 01/19/19 09:50 Dextrose IVPB Not Given DAILY BHARAT Imipramine HCl 50 mg 01/18/19 06:00 01/18/19 22:14 Tofranil - PO 50 mg BID BHARAT Administration Ketorolac Tromethamine 15 mg 01/19/19 08:40 Toradol Injection - IVPUSH 01/24/19 08:39 Q6H PRN PAIN LEVEL 7 - 10 Tamsulosin HCl 0.4 mg 01/18/19 01:51 01/19/19 09:32 Flomax - PO 0.4 mg DAILY@0830 BHARAT Administration -CTAP: 6mm distal right ureteral calculus with moderate hydronephrosis. 10mm proximal left ureteral calculus with mild hydronephrosis. Bilateral nephrolithiasis. No additional evidence of acute pathology within the abdomen or pelvis. ASSESSMENT/PLAN: Patient is a 53 year old male with past medical history of nephrolithiasis (s/p R and L lithotripsy), HTN and depression, presented to the ED due to right flank pain for 1 day. #Bilateral hydronephrosis 2/2 bilateral ureteral calculus -Urology (Dr. Parikh) consulted. Recommendations appreciated. -Plan for right, and possible left ureteral stent placement. -Pain control with Toradol 15mg q6 and Tylenol 650mg q6 PRN -NPO after midnight -Continue Flomax 0.4mg daily -IV LR @75cc/hr #Complicated UTI -patient presented with leukocytosis, UA +LE WBC 17 -will continue Ceftriaxone 1gm daily for now -awaiting urine cultures #BHARGAVI on CKD -Cr improving -will continue IV hydration -monitor BMP #HTN -will resume Losartan tomorrow -continue to monitor renal function #Depression/Anxiety -Will continue Tofranil 50mg BID -Will continue home xanax 0.5mg TID #FEN -IV LR @75cc/hr -Electrolytes wnl routine bmp monitoring -sodium controlled diet #Prophylaxis -SCDs, early ambulation #Disposition -full code -med surg Visit type - Emergency Visit Emergency Visit: Yes ED Registration Date: 01/17/19 Care time: The patient presented to the Emergency Department on the above date and was hospitalized for further evaluation of their emergent condition. - New Patient This patient is new to me today: No - Critical Care Critical Care patient: No
[2019-01-19] MEDS: IMIPRAMINE HCL 25 MG TABLET (NON FORMULARY) PO SCH ×2 (11:06→21:13)
[2019-01-19] MEDS: KETOROLAC TROMETHAMINE 15 MG/ML VIAL IVPUSH PRN (12:49)
--- NOTE | 2019-01-19 13:34 | PN ---
Physical Exam: SUBJECTIVE: Patient seen and examined AT bedside. Remains comfortable . Pain is under control. Did NOT pass the stone yet. OBJECTIVE: Vital Signs Period Temp Pulse Resp BP Sys/Culver Pulse Ox Last 24 Hr 97.9 F-98.5 F 72-80 16-20 122-155/68-98 97-100 GENERAL: The patient is awake, alert, and fully oriented, in no acute distress. HEENT : Unremarkable. LUNGS: Breath sounds equal, clear to auscultation bilaterally, no wheezes, no crackles, no accessory muscle use. HEART: Regular rate and rhythm, S1, S2 without murmur, rub or gallop. ABDOMEN: Soft, nontender, nondistended, normoactive bowel sounds. EXTREMITIES: 2+ pulses, warm, well-perfused, no edema. NEUROLOGICAL: Cranial nerves II through XII grossly intact. Normal speech, gait not observed. PSYCH: Normal mood, normal affect. SKIN: Warm, dry, normal turgor, no rashes or lesions noted Laboratory Results - last 24 hr 01/19/19 01/19/19 01/19/19 06:00 06:00 06:00 WBC 5.9 RBC 5.01 Hgb 15.4 Hct 45.0 MCV 89.7 MCH 30.7 MCHC 34.2 RDW 12.8 Plt Count 200 MPV 9.5 Absolute Neuts (auto) 4.0 Neutrophils % 67.1 Lymphocytes % 21.8 D Monocytes % 8.0 Eosinophils % 2.4 Basophils % 0.7 Nucleated RBC % 0 PT with INR 12.00 INR 1.02 PTT (Actin FS) 29.5 Sodium 140 Potassium 4.3 Chloride 106 Carbon Dioxide 28 Anion Gap 5 L BUN 22 H Creatinine 1.4 H Creat Clearance w eGFR 53.01 Random Glucose 91 Calcium 8.4 L Phosphorus 3.3 Magnesium 2.0 Total Bilirubin 0.3 AST 15 ALT 28 Alkaline Phosphatase 60 Total Protein 6.1 L Albumin 3.2 L Active Medications Generic Name Dose Route Start Last Admin Trade Name Freq PRN Reason Stop Dose Admin Acetaminophen 650 mg 01/19/19 07:12 Tylenol - PO Q6H PRN PAIN OR FEVER Sodium Chloride 1,000 mls @ 75 mls/hr 01/19/19 07:15 01/19/19 09:48 Normal Saline - IV 75 mls/hr ASDIR BHARAT Administration Ceftriaxone Sodium 1 gm/ 50 mls @ 100 mls/hr 01/19/19 10:00 01/19/19 09:50 Dextrose IVPB Not Given DAILY BHARAT Imipramine HCl 50 mg 01/18/19 06:00 01/19/19 11:06 Tofranil - PO 50 mg BID BHARAT Administration Ketorolac Tromethamine 15 mg 01/19/19 08:40 01/19/19 12:49 Toradol Injection - IVPUSH 01/24/19 08:39 15 mg Q6H PRN Administration PAIN LEVEL 7 - 10 Tamsulosin HCl 0.4 mg 01/18/19 01:51 01/19/19 09:32 Flomax - PO 0.4 mg DAILY@0830 BHARAT Administration ASSESSMENT/PLAN: Patient is a 53 year old male with past medical history of nephrolithiasis (s/p R and L lithotripsy), HTN and depression, presented to the ED due to right flank pain for 1 day. #Bilateral hydronephrosis 2/2 bilateral ureteral calculus -Urology (Dr. Parikh) eval noted >> -Plan for right, and possible left ureteral stent placement. -Pain control with Toradol 15mg q6 and Tylenol 650mg q6 PRN -NPO after midnight -Continue Flomax 0.4mg daily -IV LR @75cc/hr #Complicated UTI -patient presented with leukocytosis, UA +LE WBC 17 -will continue Ceftriaxone 1gm daily for now - urine culture >>NGTD #BHARGAVI on CKD -Cr improving 1.4 today (Cr 2 in 2017) -will continue IV hydration -monitor BMP #HTN -Losartan on hold in light of renal function > Can resume if needed to control HTN, while improving BHARGAVI. #Depression -Will continue Tofranil 50mg BID #FEN -IV LR @75cc/hr -Electrolytes wnl routine bmp monitoring -sodium controlled diet #Prophylaxis -SCDs, early ambulation #Disposition -full code Plan d/w the patient at bedside. Visit type - Emergency Visit Emergency Visit: Yes ED Registration Date: 01/17/19 Care time: The patient presented to the Emergency Department on the above date and was hospitalized for further evaluation of their emergent condition. - New Patient This patient is new to me today: No - Critical Care Critical Care patient: No - Discharge Referral Referred to [facility] No
[2019-01-19] MEDS ORDERED: PT OWN MED DRAWER 7, Y5N ONE (20:56)
[2019-01-19] MEDS: ALPRAZolam 0.25 MG TABLET PO SCH (21:12)
[2019-01-20] MEDS: ALPRAZolam 0.25 MG TABLET PO SCH ×3 (05:49→21:15)
[2019-01-20 08:53] LABS: BASO % 0.7 % (0-2.0); EOS % 3.3 % (0-4.5); HEMATOCRIT 41.9 % (35.4-49); HEMOGLOBIN 14.4 GM/dL (11.7-16.9); LYMPH % 24.6 % (8-40); MCH 30.9 pg (25.7-33.7); MCHC 34.4 g/dl (32.0-35.9); MEAN CELL VOLUME 89.8 fl (80-96); MEAN PLT VOLUME 9.1 fl (7.5-11.1); MONO % 9.2 % (3.8-10.2); NEUT % 62.2 % (42.8-82.8); PLATELET COUNT 187 K/MM3 (134-434); RBC 4.67 M/mm3 (4.00-5.60); RDW 12.8 % (11.9-15.9); WHITE BLOOD COUNT 5.7 K/mm3 (4.0-10.0)
[2019-01-20] MEDS ORDERED: cefTRIAXone SODIUM 1 GM VIAL ONE (08:53)
[2019-01-20] MEDS ORDERED: DEXTROSE 5%-WATER - 50 ML IVPB ONE (08:54)
[2019-01-20] MEDS ORDERED: ONDANSETRON 4 MG/2 ML VIAL IVPUSH PRN (09:01)
[2019-01-20] MEDS: SODIUM CHLORIDE 1,000 ML IV SCH (09:02)
[2019-01-20] MEDS: TAMSULOSIN HCL 0.4 MG CAP PO SCH (09:02)
[2019-01-20] MEDS ORDERED: LACTATED RINGERS SOLUTION 1,000 ML IV SCH ×2 (09:15→15:00)
[2019-01-20] MEDS ORDERED: MIDAZOLAM HCL 2 MG/2 ML SINGLE DOSE VIAL ONE (09:15)
[2019-01-20] MEDS ORDERED: DEXAMETHASONE SOD PHOSPHATE 4 MG/1 ML VIAL ONE (09:16)
[2019-01-20] MEDS ORDERED: PROPOFOL 20 ML ONE ×3 (09:16)
[2019-01-20] MEDS ORDERED: LIDOCAINE HCL/PF 2% SDV 5ML VIAL ONE (09:16)
[2019-01-20 09:19] LABS: ANION GAP 5 MMOL/L (8-16); BLOOD UREA NITROGEN 21 mg/dL (7-18); CALCIUM 8.5 mg/dL (8.5-10.1); CHLORIDE 109 mmol/L (98-107); CO2 27 mmol/L (21-32); CREATININE 1.5 mg/dL (0.55-1.3); GLUCOSE,RANDOM 85 mg/dL (74-106); POTASSIUM 4.2 mmol/L (3.5-5.1); SODIUM 140 mmol/L (136-145)
[2019-01-20] MEDS ORDERED: cefTRIAXone SODIUM 1 GM VIAL IVPB ONE (09:45)
[2019-01-20] MEDS ORDERED: cefOXitin SODIUM 1 GM VIAL (RESTRICTED TO ID) IVPB ONE (09:45)
[2019-01-20] MEDS ORDERED: LOSARTAN POTASSIUM 50 MG TABLET (FP) PO SCH (10:00)
[2019-01-20] MEDS ORDERED: DESFLURANE GAS 240 ML BOTTLE IH ONE (11:08)
[2019-01-20] MEDS ORDERED: PT OWN MED DRAWER 7, Y5N ONE ×2 (13:08→21:04)
[2019-01-20] MEDS: IMIPRAMINE HCL 25 MG TABLET (NON FORMULARY) PO SCH ×2 (13:34→21:17)
--- NOTE | 2019-01-20 14:38 | OP ---
DATE OF OPERATION: 01/20/2019 PREOPERATIVE DIAGNOSIS: Bilateral ureteral stones. POSTOPERATIVE DIAGNOSIS: Bilateral ureteral stones. PROCEDURE: Cystoscopy, right ureteroscopy, right retrograde, basketing of stone, and placement of ureteral stent, left retrograde, left ureteroscopy, with laser stone fragmentation and placement of stent. ATTENDING SURGEON: Jaylan Parikh MD ANESTHESIA: General by LMA. Patient was brought in to the operating room. IV Rocephin was administered. He was then carefully placed in lithotomy with SCDs on the lower extremities, and prepped and draped in the usual sterile fashion. A 23-Malaysian cystoscope was passed per urethra. The prostatic urethra was approximately 3.5 cm in length. The bladder was examined. There were no lesions in the bladder. Attention initially directed to the left side. Fluoroscopy revealed a density in the upper abdomen at approximately the L2 to L3 level. A cone-tipped catheter was passed into the left orifice, a retrograde was performed and confirmed that the density was a large stone in the upper ureter, with proximal ureteral dilatation. Attention was then directed to the right side, where fluoroscopy revealed a stone in the region of approximately L5. A Sensor wire was then passed through the right orifice and advanced into the right renal pelvis. A dual-lumen catheter was then advanced over the Sensor wire and a 2nd wire placed. The cystoscope was then removed and 1 wire put off to the side as a safety wire. A 2nd wire was used to advance a ureteral access sheath, which was passed under fluoroscopy to just distal to the previously-seen stone. A semirigid ureteroscope was then passed through the ureteral access sheath and advanced through the sheath to the stone. The stone appeared to be of a size that would allow the stone to be grasped with a basket, which was in fact done, and the stone together with the ureteral access sheath was removed. The stone was sent for stone analysis. In the course of removing the stone, 3 smaller stones in the lower ureter were also removed from the ureter. The safety wire was then used and a 26-cm 6-Malaysian double-pigtail catheter advanced over it and placed so that the proximal curl was in the renal pelvis and the distal curl was noted in the bladder. Attention was then redirected to the left ureteral orifice, where the Sensor wire was then passed under fluoroscopy proximal to the stone and curled in the renal pelvis. Again the dual-lumen catheter was used to advance a 2nd wire, the cystoscope removed, the ureteral access sheath advanced over the 2nd wire to just distal to the stone. The semirigid ureteroscope was then advanced so that the stone was approximately between 4 to 5 cm proximal to the end of the ureteral access sheath. Once it was identified, the 200-micron holmium laser fiber was passed through the ureteroscope, and the stone fragmented. Most of the stone was fragmented into very tiny pieces. One larger segment that remained was then grasped with the basket and withdrawn through the access sheath. Further inspection of the ureter revealed no further stones in the ureter. There did appear to be a density in the upper pole of the kidney on the left side, however, that was beyond the scope of this procedure. The ureteroscope and ureteral access sheath were then carefully withdrawn. A 28-cm 6-Malaysian double-pigtail catheter with the string left on was then advanced over the wire and placed so that the proximal curl was in the left renal pelvis and the distal curl was in the bladder. There were no complications. Stones from the left and right ureters were sent separately to the pathology department for stone analysis. Patient tolerated the procedure well, left the OR in stable satisfactory condition. MD MARCO GROVER/[id number]
[2019-01-20] MEDS: CEFTRIAXONE 1 GM in DEXTROSE 5%-WATER - 50 ML IVPB SCH (15:22)
[2019-01-20] MEDS ORDERED: amLODIPine BESYLATE 5 MG TABLET (FP) PO ONE ×2 (17:37→21:12)
--- NOTE | 2019-01-20 17:50 | PN ---
Teaching Attending Note Name of Resident: Makenzie Coleman ATTENDING PHYSICIAN STATEMENT I saw and evaluated the patient. I reviewed the resident's note and discussed the case with the resident. I agree with the resident's findings and plan as documented. SUBJECTIVE: no fever or chills. No abd pain. seen after procedure. he has hematuria after the procedure OBJECTIVE: NAD Cv : RRR Lungs: CTAB Ext : no edema or erythema Abd: soft, NT, ND , NL BS , no CVA tenderness ASSESSMENT AND PLAN: 53 y/o man with h/o nephrolithiasisHTN, depression, and s/p R lithotripsy who presented with abd pain and was found to have b/l obstructing ureteral stones 1- b/l obstructing ureteral stones with b/l hydronephrosis: s/p b/l stent placement. - hematuria is expected after procedure - IVF - pain control - U cx neg. per Uro will need to cont Abx, with keflex after dc 2- Willian: improved. expect further improvement with obstruction relief. - cont IVF - Monitor 3- HTN: hold losartan for WILLIAN . Received a dose of norvasc today dispo : can dc tomorrow as long as renal function continues to improve, even if not normal
--- NOTE | 2019-01-20 17:57 | PN ---
Physical Exam: SUBJECTIVE: Patient seen and examined at bedside this morning. No acute events overnight. Patient still reports right flank pain but otherwise feels well. Denies fever, chills, headache, dizziness, chest pain, SOB, abdominal pain, diarrhea, urinary symptoms. OBJECTIVE: Vital Signs Temperature 97.5 F L 01/20/19 14:03 Pulse Rate 78 01/20/19 14:03 Respiratory Rate 20 01/20/19 14:03 Blood Pressure 140/95 01/20/19 14:03 O2 Sat by Pulse Oximetry (%) 97 01/20/19 13:36 GENERAL: The patient is awake, alert, and fully oriented, in no acute distress. HEAD: Normal with no signs of trauma. EYES:PERRLA, EOMI, sclera anicteric, conjunctiva clear. ENT:oropharynx clear without exudates, moist mucous membranes. NECK: Trachea midline, full range of motion, supple. LUNGS: Breath sounds equal, clear to auscultation bilaterally HEART: Regular rate and rhythm, S1, S2 without murmur, rub or gallop. ABDOMEN: Soft, nontender, nondistended, normoactive bowel sounds. +R flank tenderness EXTREMITIES: 2+ pulses, warm, well-perfused, no edema. NEUROLOGICAL: Cranial nerves II through XII grossly intact. Normal speech, normal gait. PSYCH: Normal mood, normal affect. SKIN: Warm, dry, normal turgor, no rashes or lesions noted Laboratory Results - last 24 hr 01/20/19 01/20/19 08:02 08:02 WBC 5.7 RBC 4.67 Hgb 14.4 Hct 41.9 MCV 89.8 MCH 30.9 MCHC 34.4 RDW 12.8 Plt Count 187 MPV 9.1 Absolute Neuts (auto) 3.5 Neutrophils % 62.2 Lymphocytes % 24.6 Monocytes % 9.2 Eosinophils % 3.3 Basophils % 0.7 Nucleated RBC % 0 Sodium 140 Potassium 4.2 Chloride 109 H Carbon Dioxide 27 Anion Gap 5 L BUN 21 H Creatinine 1.5 H Creat Clearance w eGFR 48.95 Random Glucose 85 Calcium 8.5 Phosphorus 3.0 Magnesium 2.0 Active Medications Generic Name Dose Route Start Last Admin Trade Name Freq PRN Reason Stop Dose Admin Acetaminophen 650 mg 01/19/19 07:12 01/19/19 21:13 Tylenol - PO 650 mg Q6H PRN Administration PAIN OR FEVER Alprazolam 0.5 mg 01/19/19 22:00 01/20/19 13:34 Xanax - PO Not Given TID [facility] Fentanyl 50 mcg 01/20/19 09:01 01/20/19 12:30 Sublimaze Injection - IVPUSH 50 mcg [id number] PRN Administration PAIN-PACU ORDER X 4 DOSES ONLY Ceftriaxone Sodium 1 gm/ 50 mls @ 100 mls/hr 01/19/19 10:00 01/20/19 15:22 Dextrose IVPB Not Given DAILY [facility] Lactated Ringer's 1,000 mls @ 125 mls/hr 01/20/19 17:48 Lactated Ringers Solution IV ASDIR [facility] Imipramine HCl 50 mg 01/18/19 06:00 01/20/19 13:34 Tofranil - PO 50 mg BID [facility] Administration Ketorolac Tromethamine 15 mg 01/19/19 08:40 01/19/19 12:49 Toradol Injection - IVPUSH 01/24/19 08:39 15 mg Q6H PRN Administration PAIN LEVEL 7 - 10 Ondansetron HCl 4 mg 01/20/19 09:01 Zofran Injection IVPUSH Q6H PRN NAUSEA AND/OR VOMITING Tamsulosin HCl 0.4 mg 01/18/19 01:51 01/20/19 09:02 Flomax - PO Not Given DAILY@0830 [facility] -CTAP: 6mm distal right ureteral calculus with moderate hydronephrosis. 10mm proximal left ureteral calculus with mild hydronephrosis. Bilateral nephrolithiasis. No additional evidence of acute pathology within the abdomen or pelvis. ASSESSMENT/PLAN: Patient is a 53 year old male with past medical history of nephrolithiasis (s/p R and L lithotripsy), HTN and depression, presented to the ED due to right flank pain for 1 day. #Bilateral hydronephrosis 2/2 bilateral ureteral calculus -Urology (Dr. Parikh) consulted. Recommendations appreciated. -POD 0: bilateral stent placement -Pain control with Fentanyl, Toradol 15mg q6 and Tylenol 650mg q6 PRN -Continue Flomax 0.4mg daily -Continue IV LR @125cc/hr -Resume regular diet for dinner -May discharge tomorrow on Keflex and pain meds (no narcotics) #Complicated UTI -patient presented with leukocytosis, UA +LE WBC 17 -will continue Ceftriaxone 1gm daily -Urine cultures shows no growth #BHARGAVI on CKD -Cr improving -will continue IV hydration -monitor BMP #HTN -Hold Losartan in light of renal function -May give Amlodipine 5mg PRN -continue to monitor renal function #Depression/Anxiety -Will continue Tofranil 50mg BID -Will continue home xanax 0.5mg TID #FEN -IV LR @125cc/hr -Electrolytes wnl routine bmp monitoring -sodium controlled diet #Prophylaxis -SCDs, early ambulation #Disposition -full code -med surg Visit type - Emergency Visit Emergency Visit: Yes ED Registration Date: 01/17/19 Care time: The patient presented to the Emergency Department on the above date and was hospitalized for further evaluation of their emergent condition. - New Patient This patient is new to me today: No - Critical Care Critical Care patient: No
[2019-01-20] MEDS: LACTATED RINGERS SOLUTION 1,000 ML IV SCH ×2 (18:58→21:21)
[2019-01-20] MEDS: KETOROLAC TROMETHAMINE 15 MG/ML VIAL IVPUSH PRN (21:15)
[2019-01-21] MEDS: LACTATED RINGERS SOLUTION 1,000 ML IV SCH (06:17)
[2019-01-21] MEDS: ALPRAZolam 0.25 MG TABLET PO SCH ×2 (06:17→13:49)
[2019-01-21] MEDS: KETOROLAC TROMETHAMINE 15 MG/ML VIAL IVPUSH PRN ×2 (06:42→11:53)
[2019-01-21 07:41] LABS: BASO % 0.5 % (0-2.0); EOS % 0.6 % (0-4.5); HEMOGLOBIN 16.3 GM/dL (11.7-16.9); LYMPH % 14.5 % (8-40); MCH 31.1 pg (25.7-33.7); MCHC 34.8 g/dl (32.0-35.9); MEAN CELL VOLUME 89.4 fl (80-96); MEAN PLT VOLUME 9.3 fl (7.5-11.1); MONO % 7.2 % (3.8-10.2); NEUT % 77.2 % (42.8-82.8); PLATELET COUNT 228 K/MM3 (134-434); RBC 5.26 M/mm3 (4.00-5.60); RDW 12.9 % (11.9-15.9); WHITE BLOOD COUNT 10.4 K/mm3 (4.0-10.0)
[2019-01-21 07:58] LABS: ANION GAP 8 MMOL/L (8-16); BLOOD UREA NITROGEN 20 mg/dL (7-18); CALCIUM 9.5 mg/dL (8.5-10.1); CHLORIDE 104 mmol/L (98-107); CO2 28 mmol/L (21-32); CREATININE 1.4 mg/dL (0.55-1.3); GLUCOSE,RANDOM 82 mg/dL (74-106); MAGNESIUM 1.7 mg/dL (1.8-2.4); PHOSPHOROUS 3.3 mg/dL (2.5-4.9); POTASSIUM 3.9 mmol/L (3.5-5.1); SODIUM 141 mmol/L (136-145)
[2019-01-21] MEDS: TAMSULOSIN HCL 0.4 MG CAP PO SCH (08:49)
[2019-01-21] MEDS ORDERED: PT OWN MED DRAWER 7, Y5N ONE (09:13)
[2019-01-21] MEDS ORDERED: cefTRIAXone SODIUM 1 GM VIAL ONE (09:14)
[2019-01-21] MEDS ORDERED: DEXTROSE 5%-WATER - 50 ML IVPB ONE (09:14)
[2019-01-21] MEDS: IMIPRAMINE HCL 25 MG TABLET (NON FORMULARY) PO SCH (09:53)
[2019-01-21] MEDS: CEFTRIAXONE 1 GM in DEXTROSE 5%-WATER - 50 ML IVPB SCH (09:53)
[2019-01-21 10:22] VITALS: BP 157/97; PULSE 86; TEMP 98
[2019-01-21] MEDS ORDERED: ALPRAZolam 0.25 MG TABLET PO ONE (10:56)
[2019-01-21] MEDS ORDERED: LOSARTAN POTASSIUM 50 MG TABLET (FP) PO SCH (11:00)
--- NOTE | 2019-01-21 12:59 | DS ---
Physical Exam: SUBJECTIVE: Patient seen and examined at bedside this morning. No acute events overnight. Patient reports discomfort in bilateral flank area. He reported passing flatus and had a bowel movement. Denies fever, chills, headache, nausea , vomiting, chest pain, shortness of breath, abdominal pain, urinary symptoms. OBJECTIVE: Vital Signs Temperature 98.0 F 01/21/19 10:00 Pulse Rate 86 01/21/19 10:00 Respiratory Rate 20 01/21/19 10:00 Blood Pressure 157/97 01/21/19 10:00 O2 Sat by Pulse Oximetry (%) 99 01/21/19 09:00 PHYSICAL EXAM GENERAL: The patient is awake, alert, and fully oriented, in no acute distress. HEAD: Normal with no signs of trauma. EYES:PERRLA, EOMI, sclera anicteric, conjunctiva clear. ENT:oropharynx clear without exudates, moist mucous membranes. NECK: Trachea midline, full range of motion, supple. LUNGS: Breath sounds equal, clear to auscultation bilaterally HEART: Regular rate and rhythm, S1, S2 without murmur, rub or gallop. ABDOMEN: Soft, nontender, nondistended, normoactive bowel sounds. EXTREMITIES: 2+ pulses, warm, well-perfused, no edema. NEUROLOGICAL: Cranial nerves II through XII grossly intact. Normal speech, normal gait. PSYCH: Normal mood, normal affect. SKIN: Warm, dry, normal turgor, no rashes or lesions noted LABS Laboratory Results - last 24 hr 01/21/19 01/21/19 06:30 06:30 WBC 10.4 H RBC 5.26 Hgb 16.3 Hct 47.0 MCV 89.4 MCH 31.1 MCHC 34.8 RDW 12.9 Plt Count 228 D MPV 9.3 Absolute Neuts (auto) 8.0 Neutrophils % 77.2 D Lymphocytes % 14.5 D Monocytes % 7.2 Eosinophils % 0.6 D Basophils % 0.5 Nucleated RBC % 0 Sodium 141 Potassium 3.9 Chloride 104 Carbon Dioxide 28 Anion Gap 8 BUN 20 H Creatinine 1.4 H Creat Clearance w eGFR 53.01 Random Glucose 82 Calcium 9.5 Phosphorus 3.3 Magnesium 1.7 L -CTAP: 6mm distal right ureteral calculus with moderate hydronephrosis. 10mm proximal left ureteral calculus with mild hydronephrosis. Bilateral nephrolithiasis. No additional evidence of acute pathology within the abdomen or pelvis. HOSPITAL COURSE: Date of Admission:01/17/19 Date of Discharge: 01/21/19 Patient is a 53 year old male with past medical history of nephrolithiasis (s/p R and L lithotripsy), HTN and depression, presented to the ED due to right flank pain for [address] scan revealed bilateral ureteral stones. Urology was consulted. Patient underwent bilateral ureteral stent placement. Patient was also noted to have an elevated white count on UA and was started on IV Ceftriaxone. Urine cultures showed no growth. Patient was discharged with instructions to follow up with urology in 1 week. He was instructed to continue Keflex for 5 days and to take Tylenol/NSAIDs for pain. Minutes to complete discharge: 38 Discharge Summary Reason For Visit: CALCULUS OF KIDNEY/PYELONEPHRITIS/HYDRONEPHROSIS Current Active Problems Acute kidney injury superimposed on CKD (Acute) HTN (hypertension), benign (Acute) Hydronephrosis, right (Acute) Kidney calculi (Acute) MDD (major depressive disorder), recurrent episode, mild (Acute) Pyelonephritis (Acute) Ureteral calculus, right (Acute) Condition: Improved - Instructions Diet, Activity, Other Instructions: Your visit You were admitted to the hospital because you were having right flank pain. CAT scan showed that you have kidney stones on both sides. You were evaluated by the urologist, Dr. Parikh, and you had stents placed on both sides of your kidneys. It is important that you follow up with Dr. Parikh for further management of the stents. Medications Please take the following medications as prescribed: 1. Keflex 500mg twice a day for 5 days. 2. Flomax 0.4 mg daily. 3. You may take Tylenol or acetaminophen or Ibuprofen (for example, Motrin, Advil etc.) as needed for pain. Continue your other home medications. Follow up Please follow up with the urologist (Dr. Parikh) within 1 week. You have an appointment next , January at 3:15pm at the [facility] ([address] [place] [id number], Tel No. [phone]) Please follow up with your primary care doctor within 1 week. Please call the medical administrator clinic at [phone] to schedule an appointment with Dr. Velázquez. Additional info Call 911 or go to the ED if with any worsening fever, chills, headache, chest pain, shortness of breath, abdominal pain, bloody urine or stools, or any new concerns noted. Referrals: [facility] [place] [Provider Group] - 1 Week Jaylan Parikh MD [Staff Physician] - 01/28/19 3:15 pm (Please see Dr. Parikh on January [facility] [place] [id number] Tel No. [phone]) Disposition: HOME - Home Medications Comprehensive Discharge Medication List: Ambulatory Orders Imipramine HCl [Tofranil] 50 mg PO BID 01/18/19 Alprazolam [Xanax] 0.5 mg PO TID 01/19/19 Losartan Potassium [Cozaar -] 50 mg PO DAILY 01/19/19 Cephalexin [Keflex] 500 mg PO BID #10 capsule 01/21/19 Tamsulosin HCl [Flomax -] 0.4 mg PO DAILY@0830 #30 cap.er.24h 01/21/19 This patient is new to me today: No Emergency Visit: Yes ED Registration Date: 01/17/19 Care time: The patient presented to the Emergency Department on the above date and was hospitalized for further evaluation of their emergent condition. Critical Care patient: No - Discharge Referral Referred to [facility] Med P.C.: No
--- NOTE | 2019-01-21 17:47 | PN ---
Teaching Attending Note Name of Resident: Nena Benito ATTENDING PHYSICIAN STATEMENT I saw and evaluated the patient. I reviewed the resident's note and discussed the case with the resident. I agree with the resident's findings and plan as documented. SUBJECTIVE: Seen and examined at bedside. Feeling well, had some hematuria post op but has cleared. moving bowels, pain better controlled, ready to go home. no fevers/ chills. OBJECTIVE: Vital Signs Period Temp Pulse Resp BP Sys/Culver Pulse Ox Last 24 Hr 97.9 F-99.5 F 76-89 19-20 136-157/75-97 99-99 ALL INPATIENT MEDICATIONS REVIEWED Home Medication List Medication Instructions Recorded Confirmed Type Imipramine HCl [Tofranil] 50 mg PO BID 01/18/19 01/18/19 History Alprazolam [Xanax] 0.5 mg PO TID 01/19/19 01/19/19 History Losartan Potassium [Cozaar -] 50 mg PO DAILY 01/19/19 01/19/19 History Laboratory Last Values WBC 10.4 K/mm3 (4.0-10.0) H 01/21/19 06:30 RBC 5.26 M/mm3 (4.00-5.60) 01/21/19 06:30 Hgb 16.3 GM/dL (11.7-16.9) 01/21/19 06:30 Hct 47.0 % (35.4-49) 01/21/19 06:30 MCV 89.4 fl (80-96) 01/21/19 06:30 MCH 31.1 pg (25.7-33.7) 01/21/19 06:30 MCHC 34.8 g/dl (32.0-35.9) 01/21/19 06:30 RDW 12.9 % (11.9-15.9) 01/21/19 06:30 Plt Count 228 K/MM3 (134-434) D 01/21/19 06:30 MPV 9.3 fl (7.5-11.1) 01/21/19 06:30 Absolute Neuts (auto) 8.0 K/mm3 (1.5-8.0) 01/21/19 06:30 Neutrophils % 77.2 % (42.8-82.8) D 01/21/19 06:30 Lymphocytes % 14.5 % (8-40) D 01/21/19 06:30 Monocytes % 7.2 % (3.8-10.2) 01/21/19 06:30 Eosinophils % 0.6 % (0-4.5) D 01/21/19 06:30 Basophils % 0.5 % (0-2.0) 01/21/19 06:30 Nucleated RBC % 0 % (0-0) 01/21/19 06:30 PT with INR 12.00 SEC (9.7-13.0) 01/19/19 06:00 INR 1.02 (0.83-1.09) 01/19/19 06:00 PTT (Actin FS) 29.5 SECONDS (25.2-36.5) 01/19/19 06:00 Sodium 141 mmol/L (136-145) 01/21/19 06:30 Potassium 3.9 mmol/L (3.5-5.1) 01/21/19 06:30 Chloride 104 mmol/L (98-107) 01/21/19 06:30 Carbon Dioxide 28 mmol/L (21-32) 01/21/19 06:30 Anion Gap 8 MMOL/L (8-16) 01/21/19 06:30 BUN 20 mg/dL (7-18) H 01/21/19 06:30 Creatinine 1.4 mg/dL (0.55-1.3) H 01/21/19 06:30 Creat Clearance w eGFR 53.01 (>60) 01/21/19 06:30 Random Glucose 82 mg/dL (74-106) 01/21/19 06:30 Calcium 9.5 mg/dL (8.5-10.1) 01/21/19 06:30 Phosphorus 3.3 mg/dL (2.5-4.9) 01/21/19 06:30 Magnesium 1.7 mg/dL (1.8-2.4) L 01/21/19 06:30 Total Bilirubin 0.3 mg/dL (0.2-1) 01/19/19 06:00 AST 15 U/L (15-37) 01/19/19 06:00 ALT 28 U/L (13-61) 01/19/19 06:00 Alkaline Phosphatase 60 U/L (45-117) 01/19/19 06:00 Total Protein 6.1 g/dl (6.4-8.2) L 01/19/19 06:00 Albumin 3.2 g/dl (3.4-5.0) L 01/19/19 06:00 Urine Color Yellow 01/17/19 21:35 Urine Appearance Clear 01/17/19 21:35 Urine pH 5.0 (5.0-8.0) 01/17/19 21:35 Ur Specific Coy 1.015 (1.010-1.035) 01/17/19 21:35 Urine Protein Negative (NEGATIVE) 01/17/19 21:35 Urine Glucose (UA) Negative (NEGATIVE) 01/17/19 21:35 Urine Ketones Negative (NEGATIVE) 01/17/19 21:35 Urine Blood 1+ (NEGATIVE) H 01/17/19 21:35 Urine Nitrite Negative (NEGATIVE) 01/17/19 21:35 Urine Bilirubin Negative (NEGATIVE) 01/17/19 21:35 Urine Urobilinogen 0.2 mg/dL (0.2-1.0) 01/17/19 21:35 Ur Leukocyte Esterase 1+ (NEGATIVE) H 01/17/19 21:35 Urine WBC (Auto) 17 /hpf (0-5) 01/17/19 21:35 Urine RBC (Auto) 15 /hpf (0-4) 01/17/19 21:35 Urine Casts (Auto) 3 /lpf (0-8) 01/17/19 21:35 U Epithel Cells (Auto) 0.9 /HPF (0-5/HPF) 01/17/19 21:35 Urine Bacteria (Auto) 2.5 /hpf (NEGATIVE) 01/17/19 21:35 Blood Type AB POSITIVE 01/18/19 09:00 Antibody Screen Negative 01/18/19 05:20 ALL IMAGING REPORTS REVIEWED PHYSICAL EXAM: General: NAD CVS: s1s2 rrr, no m/r/g Lungs: CTA b/l, no w/r/r, unlabored Abdomen: soft, nt/nd, nabs Ext: no c/c/e ASSESSMENT AND PLAN: 53 year old male with a history of nephrolithiasis presented with abdominal pain. 1) B/L obstructing ureteral stones with b/l hydronephrosis: s/p b/l stent placement. -much improved -PO abx-keflex x 5 days -flomax -urology followup outpatient, cleared for dc -benny resolving 2) HTN -resume losartan
--- NOTE | 2019-01-22 14:31 | PATH ---
Surgical Pathology Report Patient Name: GAYLA JUAREZ Med. Rec. #: [id number] /Age/Gender: 1965 (Age: 53) / M Account: [id number] Location: [facility] MED/SURG Taken: 01/20/2019 Received: 01/20/2019 Reported: 01/22/2019 Physicians: MD Bernadette Levy M.D. Specimen(s) Received A: RIGHT URETERAL STONE B: LEFT URETERAL STONE Clinical History Calculus of kidney, pyelonephritis, hydronephrosis Final Diagnosis A. RIGHT URETERAL STONE, REMOVAL: CONSISTENT WITH URETERAL STONE. SENT FOR CHEMICAL ANALYSIS. B. LEFT URETERAL STONE, REMOVAL: CONSISTENT WITH URETERAL STONE. SENT FOR CHEMICAL ANALYSIS. Electronically Signed Agnieszka Dooley M.D. Gross Description A. Received fresh labeled "right ureteral stone," is a 0.6 cm greatest dimension ribeiro-red, irregular calculus which is sent for chemical analysis. B. Received fresh labeled "left ureteral stone," are 3 ribeiro, irregular calculi ranging from 0.2-0.3 cm in greatest dimension. The specimen is sent for chemical analysis. DL/01/20/2019 saudi/01/20/2019
== END 2019-01-21 15:03 | disposition home or self-care (01) | DRG 661 ==
LOC: JER 17:47 → JERBED 23:35 → J7W 01-18 16:11
PROVIDERS: ADMIT Internal Medicine; ATTEND Internal Medicine
PROC: 0T768DZ Dilation of Right Ureter with Intraluminal Device, Via Natural or Artificial Opening Endoscopic (ICD-10-PCS; 2019-01-20)
PROC: BT1BYZZ Fluoroscopy of Bladder and Urethra using Other Contrast (ICD-10-PCS; 2019-01-20)
PROC: 0TC68ZZ Extirpation of Matter from Right Ureter, Via Natural or Artificial Opening Endoscopic (ICD-10-PCS; principal; 2019-01-20 14:00)
DX: N13.2 Hydronephrosis with renal and ureteral calculous obstruction (principal); N17.9 Acute kidney failure, unspecified; N28.1 Cyst of kidney, acquired; K40.20 Bilateral inguinal hernia, without obstruction or gangrene, not specified as recurrent; I12.9 Hypertensive chronic kidney disease with stage 1 through stage 4 chronic kidney disease, or unspecified chronic kidney disease; N18.9 Chronic kidney disease, unspecified; F32.9 Major depressive disorder, single episode, unspecified; F41.9 Anxiety disorder, unspecified; N39.0 Urinary tract infection, site not specified
CPT/HCPCS: 36415; 74176-TC; 76000-TC-FY; 80048; 80053; 81003; 82360; 83735; 84100; 85025; 85610; 85730; 86850; 86900; 86901; 87086; 88300-TC; 94760; 99283-25; J7030

== ENCOUNTER 2019-03-09 07:31 | Day surgery (SDC) | payer BC | END 2019-03-09 11:45 | disposition home or self-care (01) | LOC: JASU-SURG 07:31 ==

== ENCOUNTER 2024-08-02 12:28 | Day surgery (SDC) | payer BC, OTHER ==
[2024-08-02 12:34] VITALS: BMI 25.0
[2024-08-02] MEDS ORDERED: ONDANSETRON 4 MG/2 ML VIAL ONE ×3 (13:15→17:01)
[2024-08-02] MEDS ORDERED: KETOROLAC TROMETHAMINE 15 MG/ML VIAL ONE (13:15)
[2024-08-02] MEDS: KETOROLAC TROMETHAMINE 15 MG/ML VIAL IVPUSH ONE (13:33)
[2024-08-02] MEDS: ONDANSETRON 4 MG/2 ML VIAL IVPUSH ONE ×2 (13:33→15:02)
[2024-08-02 13:41] LABS: HEMATOCRIT 51.1 % (35.4-49); HEMOGLOBIN 17.1 GM/dL (11.7-16.9); MCH 30.3 pg (25.7-33.7); MCHC 33.5 g/dl (32.0-35.9); MEAN CELL VOLUME 90.5 fl (80-96); MEAN PLT VOLUME 8.6 fl (7.5-11.1); PLATELET COUNT 256 10^3/uL (134-434); RBC 5.64 M/mm3 (4.00-5.60); WHITE BLOOD COUNT 13.7 K/mm3 (4.0-10.0)
[2024-08-02 13:48] LABS: INR 0.96 (0.83-1.09); PROTHROMBIN TIME (PATIENT) 10.9 SEC (9.7-13.0)
[2024-08-02 13:50] LABS: ACTIVATED PTT 29.2 SECONDS (25.2-36.5)
[2024-08-02 14:12] LABS: ALBUMIN 4.1 g/dl (3.4-5.0); CALCIUM 10.3 mg/dL (8.5-10.1)
[2024-08-02 14:13] LABS: BLOOD UREA NITROGEN 25.3 mg/dL (7-18); MAGNESIUM 2.2 mg/dL (1.8-2.4)
[2024-08-02 14:16] LABS: ANISOCYTOSIS 0; CREATININE 1.5 mg/dL (0.55-1.3); MACROCYTOSIS 0
[2024-08-02 14:17] LABS: BILIRUBIN,TOTAL 0.7 mg/dL (0.2-1); TOT PROT 7.6 g/dl (6.4-8.2)
[2024-08-02 14:21] LABS: POTASSIUM 4.2 mmol/L (3.5-5.1)
[2024-08-02 14:44] LABS: EPI CELLS 11 /uL (0-25.1); HYALINE CASTS 0 /uL (0-3.1); PH,URINE 7.5 (5.0-8.0); URINE APPEARANCE CLEAR; URINE BACTERIA 40 /uL (0-1359); URINE BILIRUBIN NEGATIVE (NEGATIVE); URINE COLOR YELLOW; URINE GLUCOSE (UA) NEGATIVE (NEGATIVE); URINE KETONE TRACE (NEGATIVE); URINE LEUK ESTERASE 1+ (NEGATIVE); URINE NITRITE NEGATIVE (NEGATIVE); URINE PROTEIN 1+ (NEGATIVE); URINE RBC 599 /uL (0-23.9); URINE UROBILINOGEN 0.2 mg/dL (0.2-1.0); URINE WBC 59 /uL (0-25.8)
[2024-08-02] MEDS ORDERED: ACETAMINOPHEN INJECTION 100 ML ONE (14:51)
[2024-08-02] MEDS ORDERED: FAMOTIDINE 20 MG/50 ML IVPB 20 MG/50 ML MG IVPB ONE (14:52)
[2024-08-02] MEDS ORDERED: MAG HYDROX/AL HYDROX/SIMETH 30 ML UNIT-DOSE CUP ONE (14:52)
[2024-08-02] MEDS: ACETAMINOPHEN 1000 MG/100 ML BAG IVPB ONE (15:02)
[2024-08-02] MEDS: MAG HYDROX/AL HYDROX/SIMETH 30 ML UNIT-DOSE CUP PO ONE (15:02)
[2024-08-02] MEDS: FAMOTIDINE 20 MG/50 ML IVPB 20 MG/50 ML MG IVPB ONE (15:02)
[2024-08-02] MEDS ORDERED: morphine SULFATE 4 MG/ML VIAL ONE (15:14)
[2024-08-02] MEDS: morphine CARPU-JECT 4 MG/1 ML DISP.SYRIN IVPUSH ONE (15:18)
[2024-08-02] MEDS ORDERED: CEFTRIAXONE 1 GM/50 ML BAG ONE (15:51)
[2024-08-02] MEDS: SODIUM CHLORIDE 0.9% 500 ML INFUS.BAG IV ONE (16:00)
[2024-08-02] MEDS: CEFTRIAXONE 1,000 MG in DEXTROSE 5%-WATER - 50 ML IVPB ONE (16:00)
[2024-08-02] MEDS ORDERED: ONDANSETRON 4 MG/2 ML VIAL IVPUSH PRN (16:48)
[2024-08-02] MEDS ORDERED: LACTATED RINGERS SOLUTION 1,000 ML IV SCH (17:00)
[2024-08-02] MEDS ORDERED: LIDOCAINE HCL/PF 2% SDV 5ML VIAL ONE (17:01)
[2024-08-02] MEDS ORDERED: PROPOFOL 20 ML ONE (17:01)
[2024-08-02] MEDS ORDERED: MIDAZOLAM HCL 2 MG/2 ML SINGLE DOSE VIAL ONE (17:01)
[2024-08-02] MEDS ORDERED: DEXAMETHASONE SOD PHOSPHATE 4 MG/1 ML VIAL ONE (17:01)
[2024-08-02] MEDS: oxyCODONE HCL 5 MG TABLET PO PRN (22:17)
[2024-08-03] MEDS ORDERED: IMIPRAMINE HCL 50 MG PO SCH (10:00)
[2024-08-03] MEDS: LOSARTAN POTASSIUM 50 MG TABLET PO SCH (10:57)
[2024-08-03 16:00] LABS: BASO % 0.4 % (0-2.0); EOS % 0.3 % (0-4.5); HEMOGLOBIN 15.2 GM/dL (11.7-16.9); LYMPH % 15.4 % (8-40); MCH 30.7 pg (25.7-33.7); MCHC 33.9 g/dl (32.0-35.9); MEAN CELL VOLUME 90.5 fl (80-96); MEAN PLT VOLUME 8.9 fl (7.5-11.1); MONO % 7.1 % (3.8-10.2); NEUT % 76.8 % (42.8-82.8); PLATELET COUNT 229 10^3/uL (134-434); RBC 4.97 M/mm3 (4.00-5.60); RDW 13.4 % (11.9-15.9); WHITE BLOOD COUNT 13.3 K/mm3 (4.0-10.0)
[2024-08-03 16:11] LABS: POTASSIUM 3.4 mmol/L (3.5-5.1)
[2024-08-03 16:13] LABS: BLOOD UREA NITROGEN 26.3 mg/dL (7-18)
[2024-08-03 16:17] LABS: CREATININE 1.5 mg/dL (0.55-1.3)
[2024-08-03 16:18] LABS: BILIRUBIN,TOTAL 0.4 mg/dL (0.2-1); TOT PROT 6.1 g/dl (6.4-8.2)
[2024-08-03 16:49] LABS: ALBUMIN 3.2 g/dl (3.4-5.0)
[2024-08-03 22:01] VITALS: RESP 18
[2024-08-03] MEDS: MELATONIN 5 MG TABLETS PO PRN (22:05)
[2024-08-04 09:45] VITALS: BP 133/83; PULSE 83; TEMP 98.6
[2024-08-04 10:32] LABS: BASO % 0.7 % (0-2.0); EOS % 0.6 % (0-4.5); HEMATOCRIT 47.9 % (35.4-49); HEMOGLOBIN 16.1 GM/dL (11.7-16.9); LYMPH % 16.6 % (8-40); MCH 30.5 pg (25.7-33.7); MCHC 33.6 g/dl (32.0-35.9); MEAN CELL VOLUME 90.5 fl (80-96); MEAN PLT VOLUME 9.2 fl (7.5-11.1); MONO % 8.5 % (3.8-10.2); NEUT % 73.6 % (42.8-82.8); PLATELET COUNT 247 10^3/uL (134-434); RBC 5.29 M/mm3 (4.00-5.60); RDW 13.2 % (11.9-15.9); WHITE BLOOD COUNT 9.7 K/mm3 (4.0-10.0)
[2024-08-04 10:50] LABS: POTASSIUM 3.7 mmol/L (3.5-5.1)
[2024-08-04 10:57] LABS: ALBUMIN 3.3 g/dl (3.4-5.0); BLOOD UREA NITROGEN 22.8 mg/dL (7-18); CALCIUM 8.8 mg/dL (8.5-10.1); CREATININE 1.4 mg/dL (0.55-1.3)
[2024-08-04 11:02] LABS: BILIRUBIN,TOTAL 0.7 mg/dL (0.2-1); TOT PROT 6.7 g/dl (6.4-8.2)
[2024-08-09 20:08] LABS: CA HYDROGEN PHOS. 80 % (.); SIZE 8x5 mm (.); WEIGHT 116 mg (.)
== END 2024-08-04 13:40 | disposition home or self-care (01) ==
LOC: JER 12:28 → SUATTDRO 17:44 → JASUSAT 17:44 → J6S 19:36 → JASUSAT 08-04 13:40
PROVIDERS: ATTEND Family Medicine
PROC: 0T768DZ Dilation of Right Ureter with Intraluminal Device, Via Natural or Artificial Opening Endoscopic (ICD-10-PCS; 2024-08-02)
PROC: 0TC68ZZ Extirpation of Matter from Right Ureter, Via Natural or Artificial Opening Endoscopic (ICD-10-PCS; principal; 2024-08-02 17:00)
DX: N13.6 Pyonephrosis (principal); N17.9 Acute kidney failure, unspecified
CPT/HCPCS: 36415; 74176-TC; 76000-TC-FY; 76705-TC; 80053; 81003; 82360; 83690; 83735; 85025; 85610; 85730; 87086; 88300-TC; 94760; 99285-25; C1758; C2617; J0131

== ENCOUNTER 2025-01-30 16:09 | Observation (INO) | payer OTHER ==
[2025-01-30] MEDS ORDERED: KETOROLAC TROMETHAMINE 15 MG/ML VIAL ONE (17:18)
[2025-01-30 17:20] LABS: ABSOLUTE IMMATURE GRANULOCYTES 0.05 x10^3/uL (0.0-0.031); BASOPHILS # 0.06 x10^3/uL (0.01-0.08); EOSINOPHIL % 1.8 % (0.8-7.0); EOSINOPHILS # 0.13 x10^3/uL (0.04-0.54); HEMOGLOBIN 14.5 g/dL (13.7-17.5); MCHC 34.5 g/dl (32.3-36.5); MEAN CELL VOLUME 87.5 fl (79.0-92.2); MEAN PLT VOLUME 10.1 fl (9.4-12.4); MONOCYTE # 0.58 x10^3/uL (0.30-0.82); MONOCYTE % 8.1 % (5.3-12.2); PLATELET COUNT 340 x10^3/uL (163-337); RDW 11.7 % (12.2-16.1)
[2025-01-30 17:29] LABS: INR 1.08 (0.83-1.09); PROTHROMBIN TIME (PATIENT) 11.8 SEC (9.7-13.0)
[2025-01-30] MEDS: KETOROLAC TROMETHAMINE 15 MG/ML VIAL IVPUSH ONE (17:30)
[2025-01-30 17:31] LABS: ACTIVATED PTT 27.9 SECONDS (25.2-36.5)
[2025-01-30 17:43] LABS: EPI CELLS 5 /uL (0-25.1); HYALINE CASTS 0 /uL (0-3.1); PH,URINE 6.5 (5.0-8.0); URINE APPEARANCE CLEAR; URINE BACTERIA 11 /uL (0-1359); URINE BILIRUBIN NEGATIVE (NEGATIVE); URINE COLOR DK YELLOW; URINE GLUCOSE (UA) NEGATIVE (NEGATIVE); URINE KETONE NEGATIVE (NEGATIVE); URINE LEUK ESTERASE 2+ (NEGATIVE); URINE NITRITE NEGATIVE (NEGATIVE); URINE PROTEIN TRACE (NEGATIVE); URINE RBC 172 /uL (0-23.9); URINE UROBILINOGEN 0.2 mg/dL (0.2-1.0); URINE WBC 81 /uL (0-25.8)
[2025-01-30 17:48] LABS: POTASSIUM 3.7 mmol/L (3.5-5.1)
[2025-01-30 17:49] LABS: ALBUMIN 3.4 g/dl (3.4-5.0); BLOOD UREA NITROGEN 37.2 mg/dL (7-18); CALCIUM 9.6 mg/dL (8.5-10.1)
[2025-01-30 17:53] LABS: CREATININE 2.3 mg/dL (0.55-1.3)
[2025-01-30 17:54] LABS: BILIRUBIN,TOTAL 0.4 mg/dL (0.2-1); TOT PROT 7.1 g/dl (6.4-8.2)
[2025-01-30] MEDS: LACTATED RINGERS SOLUTION 1000 ML INFUS.BAG IV ONE (18:15)
[2025-01-30] MEDS ORDERED: CEFTRIAXONE 1 G/50 ML PREMIX 50 ML IVPB ONE (20:46)
[2025-01-30] MEDS: CEFTRIAXONE 1 GM in DEXTROSE 5%-WATER - 100 ML IVPB ONE (20:55)
[2025-01-30 23:27] VITALS: BMI 24.7
[2025-01-31] MEDS: KETOROLAC TROMETHAMINE 15 MG/ML VIAL IVPUSH ONE (01:03)
[2025-01-31] MEDS: TAMSULOSIN HCL 0.4 MG CAP PO ONE (01:03)
[2025-01-31] MEDS: DEXTROSE 5%-0.45% SALINE 1,000 ML IV SCH (01:14)
[2025-01-31] MEDS: ACETAMINOPHEN 1000 MG/100 ML BAG IVPB PRN (01:23)
[2025-01-31] MEDS: ONDANSETRON 4 MG/2 ML VIAL IVPUSH PRN (01:35)
[2025-01-31] MEDS ORDERED: ALPRAZolam 0.25 MG TABLET PO PRN ×2 (07:06→07:36)
[2025-01-31 08:23] LABS: ABSOLUTE IMMATURE GRANULOCYTES 0.04 x10^3/uL (0.0-0.031); BASOPHILS # 0.06 x10^3/uL (0.01-0.08); EOSINOPHIL % 3.3 % (0.8-7.0); EOSINOPHILS # 0.19 x10^3/uL (0.04-0.54); HEMATOCRIT 40.2 % (40.1-51.0); HEMOGLOBIN 13.8 g/dL (13.7-17.5); MCHC 34.3 g/dl (32.3-36.5); MEAN CELL VOLUME 87.4 fl (79.0-92.2); MEAN PLT VOLUME 10.1 fl (9.4-12.4); MONOCYTE # 0.54 x10^3/uL (0.30-0.82); MONOCYTE % 9.4 % (5.3-12.2); PLATELET COUNT 316 x10^3/uL (163-337); RDW 11.6 % (12.2-16.1)
[2025-01-31 08:44] LABS: POTASSIUM 3.7 mmol/L (3.5-5.1)
[2025-01-31 08:48] LABS: BLOOD UREA NITROGEN 32.2 mg/dL (7-18); CALCIUM 8.8 mg/dL (8.5-10.1); MAGNESIUM 1.9 mg/dL (1.8-2.4)
[2025-01-31 08:51] LABS: CREATININE 2.1 mg/dL (0.55-1.3); PHOSPHOROUS 2.9 mg/dL (2.5-4.9)
[2025-01-31] MEDS: CEFTRIAXONE 1 G/50 ML PREMIX 50 ML IVPB SCH (10:10)
[2025-01-31] MEDS ORDERED: PROMETHAZINE HCL 25 MG/1 ML VIAL IVPB PRN (12:59)
[2025-01-31] MEDS ORDERED: oxyCODONE HCL 5 MG TABLET PO PRN ×2 (12:59)
[2025-01-31] MEDS ORDERED: ONDANSETRON 4 MG/2 ML VIAL IVPUSH PRN (12:59)
[2025-01-31] MEDS ORDERED: PROPOFOL 20 ML ONE (13:07)
[2025-01-31] MEDS ORDERED: MIDAZOLAM HCL 2 MG/2 ML SINGLE DOSE VIAL ONE (13:08)
[2025-01-31] MEDS ORDERED: LIDOCAINE HCL 2% 100 MG/5 ML DISP.SYRIN ONE (13:08)
[2025-01-31] MEDS ORDERED: ACETAMINOPHEN INJECTION 100 ML ONE (13:08)
[2025-01-31] MEDS ORDERED: SEVOFLURANE 250 ML BTL ONE (13:08)
[2025-01-31] MEDS ORDERED: DEXAMETHASONE SOD PHOSPHATE 4 MG/1 ML VIAL ONE (13:08)
[2025-01-31] MEDS ORDERED: GENTAMICIN SO4 80 MG/2 ML VIAL ONE (13:57)
[2025-01-31] MEDS: GENTAMICIN SO4 80 MG/2 ML VIAL IVPB ONE (13:58)
[2025-01-31] MEDS: LACTATED RINGERS SOLUTION 1,000 ML IV SCH (17:53)
[2025-01-31] MEDS: DOCUSATE SODIUM 100 MG CAPSULE (FP) PO PRN (20:14)
[2025-02-01] MEDS: MINERAL OIL ENEMA 133 ML ENEMA RC ONE (00:45)
[2025-02-01] MEDS: SODIUM PHOSPHATE/NA BIPHOS 133 ML ENEMA RC ONE (06:45)
[2025-02-01 08:43] LABS: HEMATOCRIT 40.1 % (40.1-51.0); HEMOGLOBIN 13.7 g/dL (13.7-17.5); MCHC 34.2 g/dl (32.3-36.5); MEAN CELL VOLUME 87.4 fl (79.0-92.2); MEAN PLT VOLUME 10.3 fl (9.4-12.4); PLATELET COUNT 383 x10^3/uL (163-337); RDW 11.5 % (12.2-16.1)
[2025-02-01] MEDS: TAMSULOSIN HCL 0.4 MG CAP PO SCH (09:17)
[2025-02-01 09:58] LABS: POTASSIUM 4.3 mmol/L (3.5-5.1)
[2025-02-01 10:54] LABS: ALBUMIN 3.4 g/dl (3.4-5.0); BLOOD UREA NITROGEN 30.8 mg/dL (7-18); CALCIUM 9.5 mg/dL (8.5-10.1)
[2025-02-01 10:58] LABS: BILIRUBIN,TOTAL 0.5 mg/dL (0.2-1); CREATININE 1.9 mg/dL (0.55-1.3)
[2025-02-01 10:59] LABS: TOT PROT 6.7 g/dl (6.4-8.2)
[2025-02-01 15:37] VITALS: BP 146/87; PULSE 88; RESP 18; TEMP 98.6
[2025-02-10 17:07] LABS: CA HYDROGEN PHOS. 50 % (.); CA OXALATE MONOHYDR. 40 % (.); SIZE 4x3 mm (.); WEIGHT 287 mg (.)
== END 2025-02-01 17:45 | disposition home or self-care (01) ==
LOC: JER 16:09 → JERBED 19:24 → J6S 22:39
PROVIDERS: ADMIT Family Medicine; ATTEND Family Medicine
PROC: 0TC78ZZ Extirpation of Matter from Left Ureter, Via Natural or Artificial Opening Endoscopic (ICD-10-PCS; principal; 2025-01-30)
PROC: 3E03329 Introduction of Other Anti-infective into Peripheral Vein, Percutaneous Approach (ICD-10-PCS; 2025-01-30)
PROC: 3E033NZ Introduction of Analgesics, Hypnotics, Sedatives into Peripheral Vein, Percutaneous Approach (ICD-10-PCS; 2025-01-30)
PROC: 3E0337Z Introduction of Electrolytic and Water Balance Substance into Peripheral Vein, Percutaneous Approach (ICD-10-PCS; 2025-01-30)
PROC: 3E0333Z Introduction of Anti-inflammatory into Peripheral Vein, Percutaneous Approach (ICD-10-PCS; 2025-01-30)
PROC: 3E033GC Introduction of Other Therapeutic Substance into Peripheral Vein, Percutaneous Approach (ICD-10-PCS; 2025-01-30)
DX: N13.2 Hydronephrosis with renal and ureteral calculous obstruction (principal); N17.9 Acute kidney failure, unspecified; D72.829 Elevated white blood cell count, unspecified; I10 Essential (primary) hypertension; F32.A Depression, unspecified
CPT/HCPCS: 36415; 76000-TC-FY; 80048; 80053; 81003; 82360; 83735; 84100; 85025; 85027; 85610; 85730; 86850; 86900; 86901; 87086; 88300-TC; 93005; 93010; 94760; 99285-25; C1758; C1769; C2617; G0378; J0131